=== PATIENT | female | born 1965 | race Caucasian/White ===

== ENCOUNTER 2021-11-01 22:53 | Emergency (ER) | payer OTHER ==
[2021-11-01 23:18] LABS: Hematocrit 48.1 % (35-47); Hemoglobin 15.2 gm/dl (12.0-16.0); Mean Cell Volume 93.8 fl (78-100); Mean Corpuscular Hemoglobin 29.6 pg (26-32); Mean Corpuscular Hgb Concent. 31.6 g/dl (32-36); Mean Platelet Volume 12.4 fl (7.5-11.0); Platelet Count 146 K/mm3 (150-450); Red Blood Count 5.13 M/mm3 (4.1-5.4); Red Cell Distribution Width 13.9 % (11.5-14.0)
[2021-11-01 23:45] LABS: Barbiturate,Urine NEGATIVE (NEGATIVE); Benzodiazepine,Urine NEGATIVE (NEGATIVE); Cocaine,Urine NEGATIVE (NEGATIVE); Methadone,Urine NEGATIVE (NEGATIVE); Opiate,Urine NEGATIVE (NEGATIVE); PCP,Urine NEGATIVE (NEGATIVE); THC,Urine POSITIVE (NEGATIVE)
[2021-11-01 23:48] LABS: Mucus MANY /HPF (NEGATIVE); RBC 0-2 /HPF (0-2)
[2021-11-02 00:03] LABS: Appearance CLEAR (CLEAR); Bilirubin NEGATIVE (NEGATIVE); Dipstick done @ ? MAIN LAB; Glucose 500 mg/dL (NEGATIVE); Ketones NEGATIVE (NEGATIVE); Nitrite NEGATIVE (NEGATIVE); Protein,Urine Dip 100 (Negative); RBC TRACE-INTACT Ery/ul (0-5); Specific Gravity >=1.030 (1.005-1.025); Urobilinogen 0.2 mg/dL (0-1)
[2021-11-02 00:08] LABS: Urine Cultured Indicated? YES
[2021-11-02] MEDS ORDERED: Zofran 4 MG/2 ML VIAL IV ONE (00:27)
[2021-11-02] MEDS ORDERED: Zofran 4 MG/2 ML VIAL ONE (00:28)
[2021-11-02 00:36] LABS: Amphetamine,Urine POSITIVE (NEGATIVE)
[2021-11-02 01:01] LABS: ACETAMINOPHEN < 10 ug/ml (10-30); ALBUMIN 4.2 g/dL (3.5-5.0); ALKALINE PHOSPHATASE 140 U/L (38-126); BLOOD UREA NITROGEN 19 mg/dL (7-17); CHLORIDE 105 mmol/L (98-107); Calcium 9.3 mg/dL (8.4-10.2); Carbon Dioxide 28 mmol/L (22-30); Creatinine 1 0.82 mg/dL (0.52-1.04); EST GLOMERULAR FILTRATION RATE > 60.0 ML/MIN; ETHYL ALCOHOL < 10 mg/dL (0-10); Glucose 152 mg/dL (74-106); Potassium 3.7 mmol/L (3.5-5.1); SALICYLATE < 1.0 mg/dL (2-20); SGOT/AST 53 U/L (14-36); SGPT/ALT 48 U/L (0-35); SODIUM 140 mmol/L (137-145); Total Protein 7.2 g/dL (6.3-8.2)
[2021-11-02 01:03] LABS: TROPONIN 0.057 ng/mL (0.000-0.034)
[2021-11-02 01:39] LABS: BAND 1 % (0.0-2.0); Basophil 1 % (0.0-1.0); Lymphocytes 27 % (24-44); Total Cells Counted 100
[2021-11-02 01:40] LABS: Platelet Estimate NORMAL (NORMAL)
[2021-11-02 01:43] LABS: Barbiturate,Urine NEGATIVE (NEGATIVE); Benzodiazepine,Urine NEGATIVE (NEGATIVE); Cocaine,Urine NEGATIVE (NEGATIVE); Methadone,Urine NEGATIVE (NEGATIVE); Opiate,Urine NEGATIVE (NEGATIVE); PCP,Urine NEGATIVE (NEGATIVE); THC,Urine POSITIVE (NEGATIVE)
[2021-11-02 02:02] LABS: Amphetamine,Urine POSITIVE (NEGATIVE)
--- NOTE | 2021-11-02 02:07 | ERPHSYRPT ---
- History of Present Illness Source: EMS Exam Limitations: clinical condition Patient Subjective Stated Complaint: Patient unaware of why she is at the ED. Patient keeps stating, "where am I at and why am I here?" Also repeatedly stating, "I need to poop." EMS states that they were called to patient's location for an accidental overdose. Man at the scene that was the 911 called identified as the or boyfriend by EMS stated that patient probably overdosed on heroin. Denies pain. Triage Nursing Assessment: Patient arrived to ED by ambulance. She was yelling out and awake upon arrival to ED. Alert to name but disoriented to place and situation. Pupils pinpoint. Patient incontinent of BM during assessment. BM formed. Patient keeps drawing up knees/legs and refusing to straigthen them out for staff during assessment. Skin cool to touch. Physician History: 55 yo wf snorted heroin at her residence this evening and became apneic. EMS arrived and administered Narcan 4mg intranasally x2 and 2mg IV Narcan which revived pt. Pt became combative after narcan but had a good airway w adequate respirations. She arrived to the ER confused but with a good airway. Pt became more awake and alert during stay. She denied trauma. Timing/Duration: other (Resolving prior to arrival) Modifying Factors: Improves With: other (Narcan) Associated Symptoms: nausea, No vomiting, No abdominal pain, No shortness of breath, No heartburn, No diaphoresis, No cough, No chills, No chest pain, No fever, No headaches, No loss of appetite, No malaise, No rash, No syncope, No seizure, No weakness Allergies/Adverse Reactions: gabapentin Allergy (Verified 11/02/21 06:30) Home Medications: Pregabalin [Lyrica] 75 mg PO BID 11/01/21 [History] Hx Tetanus, Diphtheria Vaccination/Date Given: (unsure) Hx Influenza Vaccination/Date Given: (unsure) Hx Pneumococcal Vaccination/Date Given: (unsure) Immunizations Up to Date: (unsure) Travel Risk - International Travel Have you traveled outside of the country in past 3 weeks: No - Coronavirus Screening Are you exhibiting any of the following symptoms?: No Close contact with a COVID-19 positive Pt in past 14-21 Days: No - Vaccine Status Have you recieved a Covid-19 vaccination: No - Review of Systems Constitutional: No Symptoms Eyes: No Symptoms Ears, Nose, & Throat: No Symptoms Respiratory: No Symptoms Cardiac: No Symptoms Abdominal/Gastrointestinal: No Symptoms, Nausea, Vomiting Genitourinary Symptoms: No Symptoms Musculoskeletal: No Symptoms Skin: No Symptoms Neurological: No Symptoms Psychological: No Symptoms Endocrine: No Symptoms Hematologic/Lymphatic: No Symptoms Immunological/Allergic: No Symptoms - Past Medical History Pertinent Past Medical History: No Other Medical History: Patient either unable or unwilling to give medical history at this time. She keeps stating, "I don't know" when asked about her medical history. - Past Surgical History Past Surgical History: Yes Gastrointestinal: Appendectomy Other Surgical History: Appendectomy taken from previous medical records/history. Patient either unable or unwilling to give any further surgical history at this time. She keeps stating, "I don't know" when asked about her surgical history. - Social History Smoking Status: Current every day smoker How long have you smoked: unsure Exposure to second hand smoke: No Drug Use: heroin Patient Lives Alone: No Significant Family History: no pertinent family hx - Nursing Vital Signs Nursing Vital Signs: Initial Vital Signs Pulse Rate 98 H 11/01/21 22:54 Respiratory Rate 19 11/01/21 22:54 O2 Sat by Pulse Oximetry 100 11/01/21 22:54 Pain Scale Pain Intensity 0 Mildly tachypneic - Physical Exam General Appearance: mild distress, lethargy (Lethargy resolving upon arrival) Eye Exam: PERRL/EOMI, eyes nml inspection Ears, Nose, Throat Exam: normal ENT inspection, TMs normal, pharynx normal Neck Exam: normal inspection, non-tender, supple, full range of motion, No meningismus, No mass, No Brudzinski, No Kernig's, No carotid bruit Respiratory Exam: normal breath sounds, lungs clear, airway intact, No respiratory distress Cardiovascular Exam: regular rate/rhythm, normal heart sounds, normal peripheral pulses, capillary refill <2 sec, No murmur Gastrointestinal/Abdomen Exam: soft, normal bowel sounds, No tenderness Back Exam: normal inspection, normal range of motion, No CVA tenderness, No vertebral tenderness Extremity Exam: normal inspection, normal range of motion, pelvis stable Neurologic Exam: other (Pt confused upon arrival but became more awake and alert w eventual orientation x3) Skin Exam: normal color Lymphatic Exam: No adenopathy SpO2 Interpretation: normal SpO2: 98 O2 Delivery: Room Air - Course Nursing assessment & vital signs reviewed: Yes EKG Interpreted by Me: RATE (NSR/Rate94/Mildly prolonged QTc/Poor Rwave progression V2-V3/No acute ST changes/EKG#2NSR/R87/Prolonged QTc/possible old inferior OR/Poor Rwave progression V2-V3) - CT Exams Head CT Interpretation: Tele-radiologist Report (NAD) Chest CT Interpretation: Tele-radiologist Report (CT chest/No PE/B lower lobe alveolar opacities) Ordered Tests: Active Orders 24 hr Category Date Time Status EKG-ER Only STAT Care 11/01/21 22:55 Active CHEST WITH CONTRAST [CT] Stat Exams 11/02/21 03:27 Taken HEAD WITHOUT CONTRAST [CT] Stat Exams 11/02/21 03:27 Taken ACETAMINOPHEN Routine Lab 11/01/21 23:00 Completed CBC W DIFF Stat Lab 11/01/21 22:55 Completed CMP Routine Lab 11/01/21 23:00 Completed CULTURE,URINE Stat Lab 11/01/21 23:05 Received CULTURE,URINE Stat Lab 11/01/21 23:05 Received D-DIMER QUANTITATIVE Stat Lab 11/02/21 03:00 Completed ETHYL ALCOHOL Routine Lab 11/01/21 23:00 Completed Manual Differential NC Stat Lab 11/01/21 22:55 Completed SALICYLATE Routine Lab 11/01/21 23:00 Completed TROPONIN Q3H Lab 11/01/21 23:00 Completed TROPONIN Q3H Lab 11/02/21 01:50 Completed TROPONIN Q3H Lab 11/02/21 04:48 Completed TROPONIN Q3H Lab 11/02/21 08:00 Ordered TROPONIN Q3H Lab 11/02/21 11:00 Ordered Urine Triage Profile Stat Lab 11/01/21 23:05 Completed Urine Triage Profile Stat Lab 11/02/21 00:47 Completed Medication Summary Generic Name Dose Route Start Last Admin Trade Name Freq PRN Reason Stop Dose Admin Ceftriaxone Sodium/Dextrose 1 g in 50 mls @ 100 mls/hr 11/02/21 06:28 11/02/21 06:32 Rocephin 1 Gm-D5w 50 Ml Bag IV 11/02/21 06:57 100 mls/hr STAT STA 100 mls/hr Administration Sodium Chloride 1,000 mls @ 999 mls/hr 11/02/21 06:43 11/02/21 06:46 Sodium Chloride 0.9% 1000 Ml IV 11/02/21 07:43 999 mls/hr .Q1H1M STA Administration Discontinued Medications Generic Name Dose Route Start Last Admin Trade Name Jarrellq PRN Reason Stop Dose Admin Aspirin 324 mg 11/02/21 03:20 11/02/21 03:23 Aspirin 81 Mg Tab.Chew PO 11/02/21 03:21 324 mg STAT ONE Administration Enoxaparin Sodium 90 mg 11/02/21 06:30 11/02/21 06:36 Enoxaparin Sodium 100 Mg/Ml Syringe 1 mg/kg (90 mg) 11/02/21 06:31 90 mg SQ Administration ONCE ONE Enoxaparin Sodium Confirm 11/02/21 06:35 Enoxaparin Sodium 120 Mg/0.8 Ml Syringe Administered 11/02/21 06:36 Dose 120 mg SQ .STK-MED ONE Ceftriaxone Sodium/Dextrose Confirm 11/02/21 06:31 Rocephin 1 Gm-D5w 50 Ml Bag Administered 11/02/21 06:32 Dose 1 g in 50 mls @ ud IV .STK-MED ONE Sodium Chloride Confirm 11/02/21 06:43 Sodium Chloride 0.9% 1000 Ml Administered 11/02/21 06:44 Dose 1,000 mls @ ud .ROUTE .STK-MED ONE Ondansetron HCl 4 mg 11/02/21 00:27 11/02/21 00:29 Ondansetron Hcl 4 Mg/2 Ml Vial IV 11/02/21 00:28 4 mg STAT ONE Administration Ondansetron HCl Confirm 11/02/21 00:28 Ondansetron Hcl 4 Mg/2 Ml Vial Administered 11/02/21 00:29 Dose 4 mg .ROUTE .STK-MED ONE Lab/Rad Data: Laboratory Result Diagrams 11/01/21 22:55 11/01/21 23:00 Laboratory Results 11/02/21 11/02/21 11/02/21 Range/Units 05:31 04:48 03:00 WBC (4.0-10.5) K/mm3 RBC (4.1-5.4) M/mm3 Hgb (12.0-16.0) gm/dl Hct (35-47) % MCV (78-100) fl MCH (26-32) pg MCHC (32-36) g/dl RDW (11.5-14.0) % Plt Count (150-450) K/mm3 MPV (7.5-11.0) fl Segmented Neutrophils (36.0-66.0) % Band Neutrophils (0.0-2.0) % Lymphocytes (Manual) (24-44) % Basophils (Manual) (0.0-1.0) % Platelet Estimate (NORMAL) RBC Morphology D-Dimer 766 H* (215-500) ng/mL Sodium (137-145) mmol/L Potassium (3.5-5.1) mmol/L Chloride (98-107) mmol/L Carbon Dioxide (22-30) mmol/L Anion Gap (5-15) MEQ/L BUN (7-17) mg/dL Creatinine (0.52-1.04) mg/dL Estimated GFR ML/MIN Glucose (74-106) mg/dL Calcium (8.4-10.2) mg/dL Total Bilirubin (0.2-1.3) mg/dL AST (14-36) U/L ALT (0-35) U/L Alkaline Phosphatase (38-126) U/L Troponin I 0.086 H* (0.000-0.034) ng/mL Serum Total Protein (6.3-8.2) g/dL Albumin (3.5-5.0) g/dL Urinalys Dipstick Clnc Urine Color (YELLOW) Urine Appearance (CLEAR) Urine pH (5-6) Ur Specific [place] (1.005-1.025) POC Urine Protein Conf (Negative) Urine Ketones (NEGATIVE) Urine Nitrite (NEGATIVE) Urine Bilirubin (NEGATIVE) Urine Urobilinogen (0-1) mg/dL Urine Leukocytes (NEGATIVE) Urine WBC (Auto) (0-5) /HPF Urine RBC (Auto) (0-2) /HPF U Hyaline Cast (Auto) (0-2) /LPF U Epithel Cells (Auto) (FEW) /HPF Urine Bacteria (Auto) (NEGATIVE) /HPF Urine RBC (0-5) Smith/ul Urine Mucus (Auto) (NEGATIVE) /HPF Ur Culture Indicated? Urine Glucose (NEGATIVE) mg/dL Salicylates (2-20) mg/dL Urine Opiates Level (NEGATIVE) Ur Methadone (NEGATIVE) Acetaminophen (10-30) ug/ml Urine Barbiturates (NEGATIVE) Ur Phencyclidine (PCP) (NEGATIVE) Urine Amphetamine (NEGATIVE) U Benzodiazepine Level (NEGATIVE) Urine Cocaine (NEGATIVE) Urine Marijuana (THC) (NEGATIVE) Ethyl Alcohol (0-10) mg/dL Influenza Type A Ag NEGATIVE (NEGATIVE) Influenza Type B Ag NEGATIVE (NEGATIVE) RSV (PCR) NEGATIVE (Negative) SARS-CoV-2 (PCR) NEGATIVE (NEGATIVE) 11/02/21 11/02/21 11/01/21 Range/Units 01:50 00:47 23:05 WBC (4.0-10.5) K/mm3 RBC (4.1-5.4) M/mm3 Hgb (12.0-16.0) gm/dl Hct (35-47) % MCV (78-100) fl MCH (26-32) pg MCHC (32-36) g/dl RDW (11.5-14.0) % Plt Count (150-450) K/mm3 MPV (7.5-11.0) fl Segmented Neutrophils (36.0-66.0) % Band Neutrophils (0.0-2.0) % Lymphocytes (Manual) (24-44) % Basophils (Manual) (0.0-1.0) % Platelet Estimate (NORMAL) RBC Morphology D-Dimer (215-500) ng/mL Sodium (137-145) mmol/L Potassium (3.5-5.1) mmol/L Chloride (98-107) mmol/L Carbon Dioxide (22-30) mmol/L Anion Gap (5-15) MEQ/L BUN (7-17) mg/dL Creatinine (0.52-1.04) mg/dL Estimated GFR ML/MIN Glucose (74-106) mg/dL Calcium (8.4-10.2) mg/dL Total Bilirubin (0.2-1.3) mg/dL AST (14-36) U/L ALT (0-35) U/L Alkaline Phosphatase (38-126) U/L Troponin I 0.072 H* (0.000-0.034) ng/mL Serum Total Protein (6.3-8.2) g/dL Albumin (3.5-5.0) g/dL Urinalys Dipstick Clnc Urine Color (YELLOW) Urine Appearance (CLEAR) Urine pH (5-6) Ur Specific [place] (1.005-1.025) POC Urine Protein Conf (Negative) Urine Ketones (NEGATIVE) Urine Nitrite (NEGATIVE) Urine Bilirubin (NEGATIVE) Urine Urobilinogen (0-1) mg/dL Urine Leukocytes (NEGATIVE) Urine WBC (Auto) (0-5) /HPF Urine RBC (Auto) (0-2) /HPF U Hyaline Cast (Auto) (0-2) /LPF U Epithel Cells (Auto) (FEW) /HPF Urine Bacteria (Auto) (NEGATIVE) /HPF Urine RBC (0-5) Smith/ul Urine Mucus (Auto) (NEGATIVE) /HPF Ur Culture Indicated? Urine Glucose (NEGATIVE) mg/dL Salicylates (2-20) mg/dL Urine Opiates Level NEGATIVE NEGATIVE (NEGATIVE) Ur Methadone NEGATIVE NEGATIVE (NEGATIVE) Acetaminophen (10-30) ug/ml Urine Barbiturates NEGATIVE NEGATIVE (NEGATIVE) Ur Phencyclidine (PCP) NEGATIVE NEGATIVE (NEGATIVE) Urine Amphetamine POSITIVE POSITIVE (NEGATIVE) U Benzodiazepine Level NEGATIVE NEGATIVE (NEGATIVE) Urine Cocaine NEGATIVE NEGATIVE (NEGATIVE) Urine Marijuana (THC) POSITIVE POSITIVE (NEGATIVE) Ethyl Alcohol (0-10) mg/dL Influenza Type A Ag (NEGATIVE) Influenza Type B Ag (NEGATIVE) RSV (PCR) (Negative) SARS-CoV-2 (PCR) (NEGATIVE) 11/01/21 11/01/21 11/01/21 Range/Units 23:05 23:00 22:55 WBC 8.0 (4.0-10.5) K/mm3 RBC 5.13 (4.1-5.4) M/mm3 Hgb 15.2 (12.0-16.0) gm/dl Hct 48.1 H (35-47) % MCV 93.8 (78-100) fl MCH 29.6 (26-32) pg MCHC 31.6 L (32-36) g/dl RDW 13.9 (11.5-14.0) % Plt Count 146 L (150-450) K/mm3 MPV 12.4 H (7.5-11.0) fl Segmented Neutrophils 71 H (36.0-66.0) % Band Neutrophils 1 (0.0-2.0) % Lymphocytes (Manual) 27 (24-44) % Basophils (Manual) 1 (0.0-1.0) % Platelet Estimate NORMAL (NORMAL) RBC Morphology NORMAL D-Dimer (215-500) ng/mL Sodium 140 (137-145) mmol/L Potassium 3.7 (3.5-5.1) mmol/L Chloride 105 (98-107) mmol/L Carbon Dioxide 28 (22-30) mmol/L Anion Gap 11.0 (5-15) MEQ/L BUN 19 H (7-17) mg/dL Creatinine 0.82 (0.52-1.04) mg/dL Estimated GFR > 60.0 ML/MIN Glucose 152 H (74-106) mg/dL Calcium 9.3 (8.4-10.2) mg/dL Total Bilirubin 0.40 (0.2-1.3) mg/dL AST 53 H (14-36) U/L ALT 48 H (0-35) U/L Alkaline Phosphatase 140 H (38-126) U/L Troponin I 0.057 H* (0.000-0.034) ng/mL Serum Total Protein 7.2 (6.3-8.2) g/dL Albumin 4.2 (3.5-5.0) g/dL Urinalys Dipstick Clnc MAIN LAB Urine Color YELLOW (YELLOW) Urine Appearance CLEAR (CLEAR) Urine pH 6.0 (5-6) Ur Specific [place] >=1.030 (1.005-1.025) POC Urine Protein Conf 100 (Negative) Urine Ketones NEGATIVE (NEGATIVE) Urine Nitrite NEGATIVE (NEGATIVE) Urine Bilirubin NEGATIVE (NEGATIVE) Urine Urobilinogen 0.2 (0-1) mg/dL Urine Leukocytes NEGATIVE (NEGATIVE) Urine WBC (Auto) 3-5 (0-5) /HPF Urine RBC (Auto) 0-2 (0-2) /HPF U Hyaline Cast (Auto) 6-10 (0-2) /LPF U Epithel Cells (Auto) NONE (FEW) /HPF Urine Bacteria (Auto) NONE (NEGATIVE) /HPF Urine RBC TRACE-INTACT (0-5) Smith/ul Urine Mucus (Auto) MANY (NEGATIVE) /HPF Ur Culture Indicated? YES Urine Glucose 500 (NEGATIVE) mg/dL Salicylates < 1.0 L (2-20) mg/dL Urine Opiates Level (NEGATIVE) Ur Methadone (NEGATIVE) Acetaminophen < 10 L (10-30) ug/ml Urine Barbiturates (NEGATIVE) Ur Phencyclidine (PCP) (NEGATIVE) Urine Amphetamine (NEGATIVE) U Benzodiazepine Level (NEGATIVE) Urine Cocaine (NEGATIVE) Urine Marijuana (THC) (NEGATIVE) Ethyl Alcohol < 10 (0-10) mg/dL Influenza Type A Ag (NEGATIVE) Influenza Type B Ag (NEGATIVE) RSV (PCR) (Negative) SARS-CoV-2 (PCR) (NEGATIVE) - Progress Progress: improved Progress Note: 11/02/21 06:26 Zofran 4mg IV x1 ASA 324mg po chewable 11/02/21 06:[address] Cervantes 1gm IV Rocephin 90mg sq Lovenox 11/02/21 06:42 Pt mildly hypothermic upon arrival and became normothermic w Doron Mederos 11/02/21 06:43 Counseled pt/family regarding: lab results, diagnosis, need for follow-up, zion terrazas - Departure Departure Disposition: Transfer Clinical Impression: Narcotic overdose, Elevated troponin, Pneumonia, Substance abuse, Hypothermia Condition: Stable Critical Care Time: Yes Critical Care Time(excluding separately billable procedures): Critical 30-74 mins Referrals: GREGORY BENAVIDEZ FNP [Primary Care Provider] - Follow up/PCP as directed Instructions: Accidental Overdose (DC)
[2021-11-02] MEDS ORDERED: BABY ASPIRIN 81 MG CHEW PO ONE (03:20)
[2021-11-02 05:48] VITALS: O2SAT 98
[2021-11-02 06:09] LABS: INFLUENZA A NEGATIVE (NEGATIVE); INFLUENZA B NEGATIVE (NEGATIVE); RESPIRATORY SYNCTIAL VIRUS NEGATIVE (Negative); SARS-CoV-2 Xpert Express NEGATIVE (NEGATIVE)
[2021-11-02] MEDS ORDERED: ROCEPHIN 1 Gm-D5w 50 ml Bag** 1 G/50 ML IVPB IV STA (06:28)
[2021-11-02] MEDS ORDERED: ENOXAPARIN SODIUM SQ ONE ×2 (06:30→06:35)
[2021-11-02] MEDS ORDERED: ROCEPHIN 1 Gm-D5w 50 ml Bag** 1 G/50 ML IVPB IV ONE (06:31)
[2021-11-02] MEDS ORDERED: Sodium Chloride 0.9% 1000 ML 1,000 ML ONE (06:43)
[2021-11-02] MEDS ORDERED: Sodium Chloride 0.9% 1000 ML 1,000 ML IV STA (06:43)
[2021-11-02 07:07] VITALS: BP 123/68; PULSE 85
--- NOTE | 2021-11-02 09:01 | XRAY ---
Indication: Elevated d-dimer. Multiple contiguous axial images obtained through the chest using 80 cc Isovue 370 contrast and PE protocol. Comparison: None. There is good opacification of the pulmonary arteries including lobar and segmental branches. No pulmonary embolus. Heart not enlarged. Aorta is normal in course and caliber with very minimal arteriosclerotic calcifications. No pathologic mediastinal/hilar lymphadenopathy. Lungs demonstrates mild pulmonary emphysema, minimal peripheral fibrosis/scarring, and mild/moderate bilateral dependent atelectasis greatest in both lung bases. Both lower lobes and lesser degree right upper and right middle lobe patchy interstitial alveolar opacities. No consolidation or effusion. Bony thorax intact with mild degenerative changes throughout the spine. Limited upper abdomen demonstrates fatty liver. Impression: 1. Negative pulmonary embolus. 2. Bilateral patchy interstitial opacities greatest in both lower lobes. 3. Incidental pulmonary emphysema, pulmonary fibrosis/scarring, and fatty liver. Comment: Preliminary interpretation made by [facility]. No critical discrepancy.
--- NOTE | 2021-11-02 09:01 | XRAY ---
Indication: Decreased loss of consciousness. Multiple contiguous axial images obtained through the head without contrast. Comparison: None Normal appearing brain parenchyma, ventricles, and bony calvarium. Visualized paranasal sinuses and mastoid air cells are clear. Impression: Normal CT head without contrast exam. Comment: Preliminary interpretation made by [facility]. No critical discrepancy.
== END 2021-11-02 07:31 | disposition short-term general hospital (02) ==
LOC: ED 22:53
DX: T40.1X1A Poisoning by heroin, accidental (unintentional), initial encounter (principal); R40.0 Somnolence; F11.121 Opioid abuse with intoxication delirium; R11.0 Nausea; R77.8 Other specified abnormalities of plasma proteins; J18.9 Pneumonia, unspecified organism; T68.XXXA Hypothermia, initial encounter; Z72.0 Tobacco use
CPT/HCPCS: 0241U; 36000; 36415; 70450; 71260; 80053; 80307; 81015; 84484; 85025; 85379; 87086; 93005; 96365; 96372; 96374; 99285; 99291; G0480; J0696; J1650; J2405; A9270-GY

== ENCOUNTER 2023-07-13 14:51 | Emergency (ER) | payer OTHER ==
[2023-07-13 15:17] VITALS: BP 126/63; TEMP 97.9
[2023-07-13] MEDS ORDERED: Sodium Chloride 0.9% 1000 ML 1,000 ML IV STA (15:22)
[2023-07-13 15:43] VITALS: PULSE 78; RESP 17; O2SAT 97
[2023-07-13 15:51] LABS: Absolute Neutrophil Ct (ANC) 5.64 x10^3/uL (1.4-6.9); BASOPHIL % 0.6 % (0.0-0.4); Basophil (Absolute #) 0.05 x10^3/uL (0-0.4); Eosinophil % 1.4 % (0.00-5.0); Eosinophil (Absolute #) 0.12 x10^3/uL (0-0.5); Hematocrit 41.8 % (35-47); Hemoglobin 13.4 g/dL (12.0-16.0); IMMATURE GRAN # 0.03 x10^3u/L (0.00-0.03); IMMATURE GRAN % 0.3 % (0.00-0.4); Lymphocyte (Absolute #) 2.22 x10^3/uL (1.0-4.6); Lymphocytes % 25.8 % (24.0-44.0); Mean Cell Volume 92.7 fL (78-100); Mean Corpuscular Hemoglobin 29.7 pg (26-32); Mean Corpuscular Hgb Concent. 32.1 g/dL (32-36); Mean Platelet Volume 11.2 fL (7.5-11.0); Monocyte (Absolute #) 0.55 x10^3/uL (0.0-1.3); Monocytes % 6.4 % (0.0-12.0); Neutrophil % 65.5 % (36.0-66.0); Platelet Count 178 x10^3/uL (150-450); Red Blood Count 4.51 x10^6/uL (4.1-5.4); Red Cell Distribution Width 13.5 % (11.5-14.0); White Blood Count 8.6 x10^3/uL (4.0-10.5)
[2023-07-13 16:04] LABS: ALBUMIN 3.9 g/dL (3.5-5.0); ANION GAP 7.4 MEQ/L (5-15); BILIRUBIN,TOTAL 0.5 mg/dL (0.2-1.3); Calcium 8.9 mg/dL (8.4-10.2); Creatinine 1 0.57 mg/dL (0.52-1.04); EST GLOMERULAR FILTRATION RATE 105.9 ML/MIN; Potassium 3.9 mmol/L (3.5-5.1); Total Protein 6.7 g/dL (6.3-8.2)
[2023-07-13] MEDS ORDERED: Sodium Chloride 0.9% 1000 ML 1,000 ML ONE (16:08)
--- NOTE | 2023-07-13 16:27 | XRAY ---
Indication: Diarrhea. Colitis. Multiple contiguous axial images obtained through the abdomen and pelvis without contrast. Comparison: April 17, 2013 Lung bases demonstrates dependent atelectasis. No infiltrate or effusion. Heart not enlarged. Noncontrasted stomach and bowel loops appear nonobstructed. Descending duodenum demonstrates new small diverticulum. Appendix not visualized. Colon demonstrates mild diffuse fluid leveling throughout favoring diarrhea. Colon also demonstrates scattered punctate intraluminal radiopacities presumed ingested medication/bismuth. No abnormal bowel wall thickening. Previous hysterectomy. No free fluid/air. Remaining liver, gallbladder, pancreas, spleen, adrenal glands, kidneys, ureters, and bladder are unremarkable for noncontrast exam. Mild scattered aortoiliac calcifications without AAA. Osseous structures intact with minimal degenerative changes throughout the visualized spine. No ventral or inguinal hernias. Impression: 1. Diffuse colonic diarrhea. No abnormal bowel wall thickening or inflammatory changes on this noncontrast exam. 2. Chronic findings including duodenal diverticulum, arteriosclerotic disease and degenerative spondylosis. 3. Remaining CT abdomen/pelvis without contrast exam is negative.
--- NOTE | 2023-07-13 16:58 | ERPHSYRPT ---
- History of Present Illness Time Seen by Provider: 07/13/23 14:53 Historian: patient Exam Limitations: no limitations Patient Subjective Stated Complaint: pt made chili on Monday and she has had severe diarrhea since Triage Nursing Assessment: Pt brought self to the ER, vitals wnl, denies pain at this time, pt states that she is on her second month of hepatitis medicine so she doesn't think that could be doing it, pt made chili on Monday and has been having diarrhea since, pt has been clean from drugs one year this weekend, pulses normal, skin n/w/d, doesn't appear to be in any distress Physician History: 57-year-old female presented in the ER with chief complaint of generalized abdominal discomfort and diarrhea multiple episodes loose watery for the last 2 days without hematochezia. Patient denies any fever or chills. Has some nausea but no vomiting. Patient reports some cramping in the lower abdomen. Denies any known sick contact. No recent antibiotics use. Because of repeated episodes of diarrhea she feels weak fatigued tired and dehydrated. Allergies/Adverse Reactions: gabapentin Allergy (Verified 07/13/23 15:17) Home Medications: Pregabalin [Lyrica] 75 mg PO BID 11/01/21 [History] Losartan Potassium 50 mg [Cozaar 50 MG] 50 mg PO DAILY 07/13/23 [History] Sofosbuvir/Velpatasvir [Sofosbuvir-Velpatasvir 400-100] 1 tab PO HS 07/13/23 [History] Hx Tetanus, Diphtheria Vaccination/Date Given: (unsure) Hx Influenza Vaccination/Date Given: Yes Hx Pneumococcal Vaccination/Date Given: Yes Travel Risk - International Travel Have you traveled outside of the country in past 3 weeks: No - Coronavirus Screening Are you exhibiting any of the following symptoms?: No Close contact with a COVID-19 positive Pt in past 14-21 Days: No - Vaccine Status Have you recieved a Covid-19 vaccination: Yes Enrichment Director: Moderna - Vaccination Dates Date of 2cond Vaccination (if applicable): 2021 - Review of Systems Constitutional: Fatigue, Weakness Eyes: No Symptoms Ears, Nose, & Throat: No Symptoms Respiratory: No Symptoms Cardiac: No Symptoms Abdominal/Gastrointestinal: Abdominal Pain, Nausea, Diarrhea Genitourinary Symptoms: No Symptoms Musculoskeletal: No Symptoms Skin: No Symptoms Neurological: No Symptoms Psychological: No Symptoms Endocrine: No Symptoms Hematologic/Lymphatic: No Symptoms - Past Medical History Pertinent Past Medical History: No Neurological History: No Pertinent History ENT History: No Pertinent History Cardiac History: Arrhythmia, High Cholesterol, Hypertension Respiratory History: COPD Endocrine Medical History: Liver Disease Musculoskeletal History: Osteoarthritis GI Medical History: Hernia History: No Pertinent History Psycho-Social History: No Pertinent History Female Reproductive Disorders: Breast Cancer Other Medical History: PMH: BREAST CANCER, SMOKING HISTORY, HEPATTIS C, HEART MURMUR, HX OF DRUG ABUSE. PSH: GUM REMOVAL SURGERY, APPENDECTOMY, BREAST BIOPSY, PARTIAL MASTECTOMY, HYSTERECTOMY, BROKEN ELBOW - Past Surgical History Past Surgical History: Yes Neuro Surgical History: No Pertinent History Cardiac: No Pertinent History Respiratory: No Pertinent History Gastrointestinal: Appendectomy Genitourinary: No Pertinent History Musculoskeletal: No Pertinent History Female Surgical History: Hysterectomy, Lumpectomy Other Surgical History: . - Social History Smoking Status: Current every day smoker How long have you smoked: unsure Exposure to second hand smoke: Yes Drug Use: heroin Patient Lives Alone: No Significant Family History: no pertinent family hx - Nursing Vital Signs Nursing Vital Signs: Initial Vital Signs Temperature 97.9 F 07/13/23 15:04 Pulse Rate 83 07/13/23 15:04 Respiratory Rate 15 07/13/23 15:04 Blood Pressure 126/63 07/13/23 15:04 O2 Sat by Pulse Oximetry 96 07/13/23 15:04 Pain Scale Pain Intensity 0 - Physical Exam General Appearance: no apparent distress Eye Exam: PERRL/EOMI Ears, Nose, Throat Exam: normal ENT inspection Neck Exam: normal inspection Respiratory Exam: normal breath sounds Cardiovascular Exam: regular rate/rhythm, normal heart sounds Gastrointestinal/Abdomen Exam: soft, normal bowel sounds, tenderness (Minimal abdominal discomfort/tenderness with deep palpation without guarding or rebound tenderness. 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 nml as tested Skin Exam: normal color SpO2 Interpretation: normal SpO2: 97 O2 Delivery: Room Air Ordered Tests: Medication Summary Discontinued Medications Generic Name Dose Route Start Last Admin Trade Name Freq PRN Reason Stop Dose Admin Sodium Chloride 1,000 mls @ 999 mls/hr 07/13/23 15:22 07/13/23 17:35 Sodium Chloride 0.9% 1000 Ml IV 07/13/23 16:22 Infused .Q1H1M STA Infusion Sodium Chloride Confirm 07/13/23 16:08 Sodium Chloride 0.9% 1000 Ml Administered 07/13/23 16:09 Dose 1,000 mls @ ud .ROUTE .STK-MED ONE Lab/Rad Data: Laboratory Result Diagrams 07/13/23 15:45 07/13/23 15:45 Laboratory Results 07/13/23 07/13/23 07/13/23 Range/Units 16:28 15:45 15:45 WBC 8.6 (4.0-10.5) x10^3/uL RBC 4.51 (4.1-5.4) x10^6/uL Hgb 13.4 (12.0-16.0) g/dL Hct 41.8 (35-47) % MCV 92.7 (78-100) fL MCH 29.7 (26-32) pg MCHC 32.1 (32-36) g/dL RDW 13.5 (11.5-14.0) % Plt Count 178 (150-450) x10^3/uL MPV 11.2 H (7.5-11.0) fL Gran % 65.5 (36.0-66.0) % Immature Gran % (Auto) 0.3 (0.00-0.4) % Nucleat RBC Rel Count 0.0 (0.00-0.1) % Eos # (Auto) 0.12 (0-0.5) x10^3/uL Immature Gran # (Auto) 0.03 (0.00-0.03) x10^3u/L Absolute Lymphs (auto) 2.22 (1.0-4.6) x10^3/uL Absolute Monos (auto) 0.55 (0.0-1.3) x10^3/uL Absolute Nucleated RBC 0.00 (0.00-0.01) x10^3u/L Lymphocytes % 25.8 (24.0-44.0) % Monocytes % 6.4 (0.0-12.0) % Eosinophils % 1.4 (0.00-5.0) % Basophils % 0.6 (0.0-0.4) % Absolute Granulocytes 5.64 (1.4-6.9) x10^3/uL Basophils # 0.05 (0-0.4) x10^3/uL Sodium 137 (137-145) mmol/L Potassium 3.9 (3.5-5.1) mmol/L Chloride 105 (98-107) mmol/L Carbon Dioxide 28 (22-30) mmol/L Anion Gap 7.4 (5-15) MEQ/L BUN 25 H (7-17) mg/dL Creatinine 0.57 (0.52-1.04) mg/dL Estimated GFR 105.9 ML/MIN Glucose 98 (74-106) mg/dL Lactic Acid (0.4-2.0) Calcium 8.9 (8.4-10.2) mg/dL Total Bilirubin 0.50 (0.2-1.3) mg/dL AST 25 (14-36) U/L ALT 16 (0-35) U/L Alkaline Phosphatase 104 (38-126) U/L Serum Total Protein 6.7 (6.3-8.2) g/dL Albumin 3.9 (3.5-5.0) g/dL Lipase 45 (23-300) U/L Urine Color Yellow (Yellow) Urine Appearance Clear (Clear) Urine pH 5.5 (4.6-8.0) Ur Specific [place] 1.020 (1.005-1.030) Urine Protein Negative (Negative) Urine Glucose (UA) Negative (Negative) mg/dL Urine Ketones Negative (Negative) Urine Blood Negative (Negative) Urine Nitrite Negative (Negative) Urine Bilirubin Negative (Negative) Urine Urobilinogen 0.2 (0.2) mg/dL Ur Leukocyte Esterase Negative (Negative) Urine Microscopic RBC NONE SEEN (0-5) /HPF Urine Microscopic WBC 0-2 (0-5) /HPF Ur Epithelial Cells Rare (None Seen) /HPF Urine Bacteria None Seen (None Seen) /HPF Urine Culture Reflexed NO (NO) 07/13/23 Range/Units 15:22 WBC (4.0-10.5) x10^3/uL RBC (4.1-5.4) x10^6/uL Hgb (12.0-16.0) g/dL Hct (35-47) % MCV (78-100) fL MCH (26-32) pg MCHC (32-36) g/dL RDW (11.5-14.0) % Plt Count (150-450) x10^3/uL MPV (7.5-11.0) fL Gran % (36.0-66.0) % Immature Gran % (Auto) (0.00-0.4) % Nucleat RBC Rel Count (0.00-0.1) % Eos # (Auto) (0-0.5) x10^3/uL Immature Gran # (Auto) (0.00-0.03) x10^3u/L Absolute Lymphs (auto) (1.0-4.6) x10^3/uL Absolute Monos (auto) (0.0-1.3) x10^3/uL Absolute Nucleated RBC (0.00-0.01) x10^3u/L Lymphocytes % (24.0-44.0) % Monocytes % (0.0-12.0) % Eosinophils % (0.00-5.0) % Basophils % (0.0-0.4) % Absolute Granulocytes (1.4-6.9) x10^3/uL Basophils # (0-0.4) x10^3/uL Sodium (137-145) mmol/L Potassium (3.5-5.1) mmol/L Chloride (98-107) mmol/L Carbon Dioxide (22-30) mmol/L Anion Gap (5-15) MEQ/L BUN (7-17) mg/dL Creatinine (0.52-1.04) mg/dL Estimated GFR ML/MIN Glucose (74-106) mg/dL Lactic Acid 1.1 (0.4-2.0) Calcium (8.4-10.2) mg/dL Total Bilirubin (0.2-1.3) mg/dL AST (14-36) U/L ALT (0-35) U/L Alkaline Phosphatase (38-126) U/L Serum Total Protein (6.3-8.2) g/dL Albumin (3.5-5.0) g/dL Lipase (23-300) U/L Urine Color (Yellow) Urine Appearance (Clear) Urine pH (4.6-8.0) Ur Specific [place] (1.005-1.030) Urine Protein (Negative) Urine Glucose (UA) (Negative) mg/dL Urine Ketones (Negative) Urine Blood (Negative) Urine Nitrite (Negative) Urine Bilirubin (Negative) Urine Urobilinogen (0.2) mg/dL Ur Leukocyte Esterase (Negative) Urine Microscopic RBC (0-5) /HPF Urine Microscopic WBC (0-5) /HPF Ur Epithelial Cells (None Seen) /HPF Urine Bacteria (None Seen) /HPF Urine Culture Reflexed (NO) - Progress Progress: improved Progress Note: 07/13/23 17:11 Differential diagnosis. Gastroenteritis viral versus bacterial/functional, colitis, diverticulitis, C. difficile colitis, abscess/perforation, 57-year-old is evaluated for some abdominal discomfort with multiple episodes of loose stool for the last couple of days with dehydration and fatigue. She is given fluid bolus, offered pain medication and nausea medication which she declined. Workup showed normal white count, unremarkable chemistries. I have obtained CT abdomen pelvis without contrast which is negative as well. I have recommended stool studies but patient could not provide any sample. No history of recent antibiotic use or C. difficile in the past. I think probably patient has viral etiology symptoms, recommended supportive care and outpatient follow- up. Discussed signs symptoms of worsening needing return to ER which she seems understanding. Stable for discharge. Counseled pt/family regarding: lab results, diagnosis, need for follow-up, rad results Medical Desision Making - Diagnostic Testing Diagnostic test were ordered, analyzed, and reviewed by me: Yes Radiological Interpretation: Reviewed by me - Departure Departure Disposition: Home Clinical Impression: Diarrhea Condition: Stable Critical Care Time: No Referrals: GREGORY BENAVIDEZ FNP [Primary Care Provider] - Follow up with PCP 1 day Instructions: Diarrhea and Traveler's Diarrhea, Adult (DC) Additional Instructions: Drink plenty of fluids. Take Tylenol as needed for aches and pains. Follow-up with primary care for reevaluation. Return to ER for any worsening.
[2023-07-13 17:30] LABS: ADD URINE CULTURE? NO (NO); Appearance Clear (Clear); Bacteria None Seen /HPF (None Seen); Bilirubin Negative (Negative); Blood Negative (Negative); Epithelial Cells Rare /HPF (None Seen); Glucose, Urine Negative (Negative); Ketones Negative (Negative); Leukocyte Esterase Negative (Negative); Nitrite Negative (Negative); Ph 5.5 (4.6-8.0); Protein,Urine Dip Negative (Negative); RBC NONE SEEN /HPF (0-5); Urobilinogen 0.2 mg/dL (0.2); WBC 0-2 /HPF (0-5)
== END 2023-07-13 17:38 | disposition home or self-care (01) ==
LOC: ED 14:51
DX: R19.7 Diarrhea, unspecified (principal); R10.84 Generalized abdominal pain; R11.0 Nausea; E78.5 Hyperlipidemia, unspecified; I10 Essential (primary) hypertension; Z79.899 Other long term (current) drug therapy; Z72.0 Tobacco use
CPT/HCPCS: 36415; 74176; 80053; 81001; 83605; 83690; 85025; 96360; 99284

== ENCOUNTER 2025-03-18 16:43 | Observation (INO) | payer MEDICAID ==
--- NOTE | 2025-03-18 18:24 | ERPHSYRPT ---
- History of Present Illness Source: patient Patient Subjective Stated Complaint: patient started feeling nauseous/lightheaded/dizzy/chest discomfort at work this morning Triage Nursing Assessment: patient presents to ed via ambulation without complication, patient alert and oriented x 4, patient complains of lightheadedness/nausea/chest discomfort, patient denies shortness of breath, patient denies episodes of vomiting, patient's vitals wnl, Hx Tetanus, Diphtheria Vaccination/Date Given: No (unsure) Hx Influenza Vaccination/Date Given: Yes Hx Pneumococcal Vaccination/Date Given: Yes <MILY HILLIARD - Last Filed: 03/18/25 19:13> <NATHAN ALEXANDRE - Last Filed: 03/18/25 21:15> - History of Present Illness Time Seen by Provider: 03/18/25 17:36 Physician History: 59-year-old female states she felt dizzy and tight in her left chest approximately 3:30 PM today. Patient denies any history of cardiac disease. Patient does smoke with no history of respiratory illness. No headache headache or focal neurologic changes. feels nauseous without vomiting. No diarrhea. No abdominal pain. (MILY HILLIARD) Allergies/Adverse Reactions: dicyclomine [From Bentyl] Allergy (Verified 03/18/25 17:04) gabapentin Allergy (Verified 03/18/25 17:04) Home Medications: Pregabalin [Lyrica] 75 mg PO BID 11/01/21 [History] Losartan Potassium 50 mg [Cozaar 50 MG] 50 mg PO DAILY 07/13/23 [History] Sofosbuvir/Velpatasvir [Sofosbuvir-Velpatasvir 400-100] 1 tab PO HS 07/13/23 [History] Travel Risk - International Travel Have you traveled outside of the country in past 3 weeks: No - Emerging Infectious Disease Are you exhibiting symptoms associated with any current EIDs: No <MILY HILLIARD - Last Filed: 03/18/25 19:13> - Review of Systems All Other Systems: Reviewed and Negative (As per HPI otherwise negative) <MILY HILLIARD - Last Filed: 03/18/25 19:13> - Past Medical History Pertinent Past Medical History: No Neurological History: No Pertinent History ENT History: No Pertinent History Cardiac History: High Cholesterol, Hypertension Respiratory History: COPD, Other Endocrine Medical History: Other Musculoskeletal History: Fractures GI Medical History: Hernia History: No Pertinent History Psycho-Social History: No Pertinent History Female Reproductive Disorders: Breast Cancer Other Medical History: Hepatitis C, patient reports bacterial infection to stomach and liver (February 2024), hx of L breast cancer (s/p partial mastectomy in 2016), hysterectomy (2018), 2 places of concern to R lung (being monitored by Dr. Pérez), R elbow fracture (childhood), appendectomy (1983), GERD, bladder incontinence - Past Surgical History Past Surgical History: Yes Neuro Surgical History: No Pertinent History Cardiac: No Pertinent History Respiratory: No Pertinent History Gastrointestinal: Appendectomy, Cholecystectomy Genitourinary: No Pertinent History Musculoskeletal: No Pertinent History Female Surgical History: Hysterectomy, Lumpectomy Other Surgical History: . Significant Family History: no pertinent family hx - Social History Smoking Status: Current every day smoker Exposure to second hand smoke: Yes Drug Use: none - Social Determinants of Health Will the patient participate in the screening: Yes Do you worry about a steady place to live?: No Do you have any problems with any of the following?: No known problems In the past 12 months,have you had to go without utilities?: No Transportation Issues: No Has anyone in your support network made you feel unsafe?: No Have you or anyone in your house had to go w/o enough food: No <MILY HILLIARD - Last Filed: 03/18/25 19:13> - Physical Exam SpO2: 95 <MILY HILLIARD - Last Filed: 03/18/25 19:13> - Nursing Vital Signs Nursing Vital Signs: Initial Vital Signs Temperature 97 F 03/18/25 16:43 Pulse Rate 60 03/18/25 16:43 Respiratory Rate 18 03/18/25 16:43 Blood Pressure 121/59 03/18/25 16:43 O2 Sat by Pulse Oximetry 97 03/18/25 16:43 Pain Scale Pain Intensity 0 - Physical Exam Comments: 03/18/25 18:24 General: Well-nourished well-developed. No apparent distress. HEENT: Normocephalic atraumatic no obvious facial or neck deformity or injury. Neck: Supple. No deformity or mass noted. CV: RRR NL Perfusion. No edema.. Tender to palpation left chest wall at area of old lumpectomy site from breast cancer. Resp: No Respiratory distress or adventitious breath sounds Abd: ND SNT MSK: No deformity or TTP Neuro: Alert and [place] x4. No gross focal neurologic changes Psych: No SI, HI or grave disability (MILY HILLIARD) - Course Nursing assessment & vital signs reviewed: Yes EKG Interpreted by Me: RATE (87), Sinus Rhythm, NORMAL AXIS, NORMAL INTERVALS, NORMAL QRS - Radiology Exams Chest X-ray Interpretation: Interpreted by me (New right middle lobe opacity otherwise no acute findings. Preliminary read) <NATHAN ALEXANDRE - Last Filed: 03/18/25 21:15> Ordered Tests: Active Orders 24 hr Category Date Time Status Coat Padder STAT Care 03/18/25 18:25 Active IV Insertion STAT Care 03/18/25 18:24 Active CHEST 1 VIEW (PORTABLE) Stat Exams 03/18/25 18:25 Taken CBC W DIFF Stat Lab 03/18/25 18:45 Completed CMP Stat Lab 03/18/25 18:45 Completed CULTURE,URINE Stat Lab 03/18/25 18:25 Received D-DIMER QUANTITATIVE Stat Lab 03/18/25 18:45 Completed ETHYL ALCOHOL Stat Lab 03/18/25 18:45 Completed MAGNESIUM Stat Lab 03/18/25 18:45 Completed TROPONIN Q4H Lab 03/18/25 18:45 Completed TROPONIN Q4H Lab 03/18/25 22:30 Ordered TROPONIN Q4H Lab 03/19/25 02:30 Ordered UA W/RFX UR CULTURE Stat Lab 03/18/25 18:25 Completed Urine Triage Profile Stat Lab 03/18/25 18:25 Completed Medication Summary Generic Name Dose Route Start Last Admin Trade Name Freq PRN Reason Stop Dose Admin Sodium Chloride 1,000 mls @ 50 mls/hr 03/18/25 18:30 03/18/25 18:28 Sodium Chloride 0.9% 1000 Ml IV 04/17/25 18:29 50 mls/hr .Q20H DESHAUN Administration Ceftriaxone Sodium 1 gm in 100 mls @ 200 mls/hr 03/18/25 20:43 03/18/25 20:48 Rocephin 1 Gm / 100 Ml Nacl IV 03/18/25 21:12 200 mls/hr STAT ONE 200 mls/hr Administration Discontinued Medications Generic Name Dose Route Start Last Admin Trade Name Pedro PRN Reason Stop Dose Admin Ceftriaxone Sodium Confirm 03/18/25 20:44 Rocephin 1 Gm / 100 Ml Nacl Administered 03/18/25 20:45 Dose 1 gm in 100 mls @ ud IV .STK-MED ONE Ondansetron HCl 4 mg 03/18/25 18:26 03/18/25 18:28 Ondansetron Hcl 4 Mg/2 Ml Vial IV 03/18/25 18:27 4 mg STAT ONE Administration Ondansetron HCl Confirm 03/18/25 18:27 Ondansetron Hcl 4 Mg/2 Ml Vial Administered 03/18/25 18:28 Dose 4 mg .ROUTE .STK-MED ONE Lab/Rad Data: Laboratory Result Diagrams 03/18/25 18:45 03/18/25 18:45 Laboratory Results 03/18/25 03/18/25 03/18/25 Range/Units 18:45 18:45 18:45 WBC (3.98-10.04) x10^3/uL RBC (3.93-5.22) x10^6/uL Hgb (11.2-15.7) g/dL Hct (34.1-44.9) % MCV (79.4-94.8) fL MCH (25.6-32.2) pg MCHC (32.2-35.5) g/dL RDW (11.7-14.4) % Plt Count (182-369) x10^3/uL MPV (9.4-12.3) fL Gran % (34.0-71.1) % Immature Gran % (Auto) (0.001-0.429) % Nucleat RBC Rel Count (0.00-0.2) % Eos # (Auto) (0.04-0.36) x10^3/uL Immature Gran # (Auto) (0.001-0.031) x10^3u/L Absolute Lymphs (auto) (1.18-3.74) x10^3/uL Absolute Monos (auto) (0.24-0.86) x10^3/uL Absolute Nucleated RBC (0.00-0.012) x10^3u/L Lymphocytes % (19.3-51.7) % Monocytes % (4.7-12.5) % Eosinophils % (0.7-5.8) % Basophils % (0.1-1.2) % Absolute Granulocytes (1.56-6.13) x10^3/uL Basophils # (0.01-0.08) x10^3/uL D-Dimer 0.39 (0.0-0.50) mg/L Sodium 138 (135-145) mmol/L Potassium 4.2 (3.5-5.1) mmol/L Chloride 103 (98-107) mmol/L Carbon Dioxide 22 (22-30) mmol/L Anion Gap 16.2 H (5-15) MEQ/L BUN 33 H (7-17) mg/dL Creatinine 1.53 H (0.52-1.04) mg/dL Estimated GFR 39.0 ML/MIN Glucose 121 H (74-106) mg/dL Calcium 10.0 (8.4-10.2) mg/dL Magnesium 1.9 (1.6-2.3) mg/dL Total Bilirubin 0.20 (0.2-1.3) mg/dL AST 27 (14-36) U/L ALT 18 (0-35) U/L Alkaline Phosphatase 86 (38-126) U/L Troponin I < 0.012 (0.000-0.033) ng/mL Serum Total Protein 6.9 (6.3-8.2) g/dL Albumin 4.4 (3.5-5.0) g/dL Urine Color (Yellow) Urine Appearance (Clear) Urine pH (4.6-8.0) Ur Specific [place] (1.005-1.030) Urine Protein (Negative) Urine Glucose (UA) (Negative) mg/dL Urine Ketones (Negative) Urine Blood (Negative) Urine Nitrite (Negative) Urine Bilirubin (Negative) Urine Urobilinogen (0.2) mg/dL Ur Leukocyte Esterase (Negative) U Hyaline Cast (Auto) (0-2) /LPF Urine Microscopic RBC (0-5) /HPF Urine Microscopic WBC (0-5) /HPF Ur Epithelial Cells (None Seen) /HPF Urine Bacteria (None Seen) /HPF Urine Mucus (NEGATIVE) /HPF Urine Culture Reflexed (NO) Urine Opiates Level (NEGATIVE) Ur Methadone (NEGATIVE) Urine Barbiturates (NEGATIVE) Ur Phencyclidine (PCP) (NEGATIVE) Urine Amphetamine (NEGATIVE) U Benzodiazepine Level (NEGATIVE) Urine Cocaine (NEGATIVE) Urine Marijuana (THC) (NEGATIVE) Ethyl Alcohol < 10 (0-10) mg/dL 03/18/25 03/18/25 03/18/25 Range/Units 18:45 18:25 18:25 WBC 11.4 H (3.98-10.04) x10^3/uL RBC 4.79 (3.93-5.22) x10^6/uL Hgb 13.4 (11.2-15.7) g/dL Hct 41.9 (34.1-44.9) % MCV 87.5 (79.4-94.8) fL MCH 28.0 (25.6-32.2) pg MCHC 32.0 L (32.2-35.5) g/dL RDW 14.2 (11.7-14.4) % Plt Count 281 (182-369) x10^3/uL MPV 12.0 (9.4-12.3) fL Gran % 70.7 (34.0-71.1) % Immature Gran % (Auto) 0.5 H (0.001-0.429) % Nucleat RBC Rel Count 0.0 (0.00-0.2) % Eos # (Auto) 0.10 (0.04-0.36) x10^3/uL Immature Gran # (Auto) 0.06 H (0.001-0.031) x10^3u/L Absolute Lymphs (auto) 2.34 (1.18-3.74) x10^3/uL Absolute Monos (auto) 0.77 (0.24-0.86) x10^3/uL Absolute Nucleated RBC 0.00 (0.00-0.012) x10^3u/L Lymphocytes % 20.5 (19.3-51.7) % Monocytes % 6.7 (4.7-12.5) % Eosinophils % 0.9 (0.7-5.8) % Basophils % 0.7 (0.1-1.2) % Absolute Granulocytes 8.07 H (1.56-6.13) x10^3/uL Basophils # 0.08 (0.01-0.08) x10^3/uL D-Dimer (0.0-0.50) mg/L Sodium (135-145) mmol/L Potassium (3.5-5.1) mmol/L Chloride (98-107) mmol/L Carbon Dioxide (22-30) mmol/L Anion Gap (5-15) MEQ/L BUN (7-17) mg/dL Creatinine (0.52-1.04) mg/dL Estimated GFR ML/MIN Glucose (74-106) mg/dL Calcium (8.4-10.2) mg/dL Magnesium (1.6-2.3) mg/dL Total Bilirubin (0.2-1.3) mg/dL AST (14-36) U/L ALT (0-35) U/L Alkaline Phosphatase (38-126) U/L Troponin I (0.000-0.033) ng/mL Serum Total Protein (6.3-8.2) g/dL Albumin (3.5-5.0) g/dL Urine Color Dark Yellow A (Yellow) Urine Appearance Turbid A (Clear) Urine pH 5.0 (4.6-8.0) Ur Specific [place] 1.025 (1.005-1.030) Urine Protein 100 A (Negative) Urine Glucose (UA) Negative (Negative) mg/dL Urine Ketones Trace A (Negative) Urine Blood Negative (Negative) Urine Nitrite Positive A (Negative) Urine Bilirubin Small A (Negative) Urine Urobilinogen 1.0 A (0.2) mg/dL Ur Leukocyte Esterase Small A (Negative) U Hyaline Cast (Auto) 3-5 A (0-2) /LPF Urine Microscopic RBC 6-10 A (0-5) /HPF Urine Microscopic WBC 21-50 A (0-5) /HPF Ur Epithelial Cells Few (None Seen) /HPF Urine Bacteria Many A (None Seen) /HPF Urine Mucus Few A (NEGATIVE) /HPF Urine Culture Reflexed YES (NO) Urine Opiates Level POSITIVE A (NEGATIVE) Ur Methadone NEGATIVE (NEGATIVE) Urine Barbiturates NEGATIVE (NEGATIVE) Ur Phencyclidine (PCP) NEGATIVE (NEGATIVE) Urine Amphetamine NEGATIVE (NEGATIVE) U Benzodiazepine Level NEGATIVE (NEGATIVE) Urine Cocaine NEGATIVE (NEGATIVE) Urine Marijuana (THC) NEGATIVE (NEGATIVE) Ethyl Alcohol (0-10) mg/dL <DE PRICE,DIRK R. - Last Filed: 03/18/25 19:13> - Progress Counseled pt/family regarding: lab results, diagnosis, rad results <NATHAN ALEXANDRE - Last Filed: 03/18/25 21:15> - Progress Progress Note: 03/18/25 18:19 EKG 5 PM normal sinus rhythm 87 bpm no ischemic changes. 03/18/25 19:13 Endorse final evaluation and treatment plan to oncoming emergency physician Dr. Nathan Alexandre. (MILY HILLIARD) 59-year-old female smoker history of breast cancer hyperlipidemia hypertension COPD hep C presents to our ED for evaluation of dizziness and chest pain. Patient initially evaluated by Dr. Cartagena. Patient endorsed to Dr. Alexandre at approximately 7 PM. Workup initiated. D-dimer negative. Initial troponin negative. UA significant for urinary tract infection. I initiated IV antibiotics. Patient's kidney function is abnormal. BUN 33 creatinine 1.55. Creatinine previously 0.57. In light of patient's chest pain abnormal kidney function and significant urinary tract infection patient will be admitted for further evaluation and treatment. Plan of care discussed with patient. She agrees to admission to [facility] for further evaluation and treatment. Heart score is 4 Chest x-ray completed. Formal read pending. However there appears to be a new right middle lobe opacity of unknown significance. Patient has no findings consistent with pneumonia. No fever no tachypnea no hypoxia no coughing no complaints of shortness of breath Dr. Alexandre independently reviewed and interpreted the chest x-ray. Differential diagnosis includes DE, acute coronary syndrome, pulmonary embolus, pneumonia, Aspirin withheld due to kidney function. Patient has no active chest pain at this time, therefore no nitroglycerin administered. Portions of this note were created with voice recognition technology. There may be grammatical, spelling, punctuation or sound alike errors History obtained from patient and daughter who was at the bedside Complexity of problem addressed is moderate acute complicated. No critical care time. Complex of data reviewed and analyzed is extensive. Test ordered chest reviewed results analyzed and correlated clinically with history and physical exam. Management discussed with hospitalist who accepts admission to observation. Risk of complication and or risk of morbidity/mortality of patient management is high. Patient requires hospitalization for further evaluation and treatment. Vital stable. Time spent in patient approximately 15 minutes. Plan of care established for shared decision making. No social determinants of health present to impede follow-up. I spoke to hospitalist at 9:10 PM. accepts admission to observation 03/18/25 20:50 (NATHAN ALEXANDRE) - Departure Critical Care Time: No <MILY HILLIARD - Last Filed: 03/18/25 19:13> - Departure Departure Disposition: Observation <NATHAN ALEXANDRE - Last Filed: 03/18/25 21:15> - Departure Clinical Impression: Dizziness, Leukocytosis, Urinary tract infection, Acute renal injury, Chest pain, ACS (acute coronary syndrome) Condition: Stable Referrals: GREGORY BENAVIDEZ [employer] [Primary Care Provider, UNKNOWN] - Follow up/PCP as directed
[2025-03-18] MEDS ORDERED: Zofran 4 MG/2 ML VIAL ONE (18:27)
[2025-03-18] MEDS: Zofran 4 MG/2 ML VIAL IV ONE (18:28)
[2025-03-18 18:48] LABS: BASOPHIL % 0.7 % (0.1-1.2); Basophil (Absolute #) 0.08 x10^3/uL (0.01-0.08); Eosinophil (Absolute #) 0.10 x10^3/uL (0.04-0.36); Hematocrit 41.9 % (34.1-44.9); Hemoglobin 13.4 g/dL (11.2-15.7); IMMATURE GRAN # 0.06 x10^3u/L (0.001-0.031); IMMATURE GRAN % 0.5 % (0.001-0.429); Lymphocyte (Absolute #) 2.34 x10^3/uL (1.18-3.74); Mean Corpuscular Hemoglobin 28.0 pg (25.6-32.2); Mean Corpuscular Hgb Concent. 32.0 g/dL (32.2-35.5); Monocyte (Absolute #) 0.77 x10^3/uL (0.24-0.86); NUCLEATED RBC # 0.00 x10^3u/L (0.00-0.012); NUCLEATED RBC % 0.0 % (0.00-0.2); Platelet Count 281 x10^3/uL (182-369); Red Blood Count 4.79 x10^6/uL (3.93-5.22); White Blood Count 11.4 x10^3/uL (3.98-10.04)
[2025-03-18 19:10] LABS: Calcium 10.0 mg/dL (8.4-10.2); Carbon Dioxide 22 mmol/L (22-30); Creatinine 1 1.53 mg/dL (0.52-1.04); EST GLOMERULAR FILTRATION RATE 39.0 ML/MIN; ETHYL ALCOHOL < 10 mg/dL (0-10); Glucose 121 mg/dL (74-106); Potassium 4.2 mmol/L (3.5-5.1); SGOT/AST 27 U/L (14-36); SGPT/ALT 18 U/L (0-35); Total Protein 6.9 g/dL (6.3-8.2)
[2025-03-18 19:30] LABS: Amphetamine,Urine NEGATIVE (NEGATIVE); Barbiturate,Urine NEGATIVE (NEGATIVE); Benzodiazepine,Urine NEGATIVE (NEGATIVE); Cocaine,Urine NEGATIVE (NEGATIVE); Methadone,Urine NEGATIVE (NEGATIVE); Opiate,Urine POSITIVE (NEGATIVE); PCP,Urine NEGATIVE (NEGATIVE); THC,Urine NEGATIVE (NEGATIVE)
[2025-03-18 19:40] LABS: Glucose, Urine Negative (Negative); Protein,Urine Dip 100 (Negative); WBC 21-50 /HPF (0-5)
[2025-03-18] MEDS ORDERED: ROCEPHIN 1 GM / 100 ML NaCl 1 GM/100 ML IVPB IV ONE (20:44)
[2025-03-18] MEDS: ROCEPHIN 1 GM / 100 ML NaCl 1 GM/100 ML IVPB IV ONE (20:48)
[2025-03-18] MEDS ORDERED: Zofran 4 MG/2 ML VIAL IV PRN (22:29)
[2025-03-18] MEDS ORDERED: TYLENOL 325 MG PO PRN (22:29)
[2025-03-18] MEDS ORDERED: DUONEB 0.5-3 MG/3 ml Neb IH PRN (22:29)
--- NOTE | 2025-03-18 22:42 | PCM.HP ---
History of Present Illness - Chief Complaint Chief Complaint: Chest pain, acute coronary syndrome Date: 03/18/25 History of Present Illness: is a 59 year old female. She states that she was working at the [employer] and began to experience chest pain around 3:30 PM. She was having dizziness, lightheadedness and nausea. She felt like she was about to pass out but denies actually losing consciousness or falling. Pain was substernal, nonradiating, 6 out of 10 intensity, lasted for about 2 hours, described as "tightness", no associated fever, chills. She does have occasional shortness of breath and a chronic cough. Has had decreased oral intake for the past few days. Does endorse dysuria and urinary urgency. Currently is pain-free. In the ED, her workup was notable for leukocytosis, worsening renal function, and UTI. Chest x-ray shows increased interstitial markings/opacities and right lower lobe infiltrate suggesting possible pneumonia. Patient was given IV fluids and ceftriaxone in the ED for UTI. He was given ondansetron for nausea which helped. - Review of Systems Constitutional: Fatigue, Lethargy Eyes: No Symptoms Ears, Nose, & Throat: No Symptoms Respiratory: Cough, Short Of Breath Cardiac: Chest Pain Abdominal/Gastrointestinal: No Symptoms, Nausea, Diarrhea (has chronic diarrhea), Appetite Changes Genitourinary Symptoms: Dysuria, Urgency (Denies flank pain) Skin: No Symptoms Neurological: No Symptoms Psychological: No Symptoms Endocrine: No Symptoms Hematologic/Lymphatic: No Symptoms Immunological/Allergic: No Symptoms Medications & Allergies Home Medications: Home Medication List Pregabalin [Lyrica] 75 mg PO TID 11/01/21 [History Confirmed 03/18/25] Losartan Potassium 50 mg [Cozaar 50 MG] 50 mg PO DAILY 07/13/23 [History Confirmed 03/18/25] Esomeprazole Magnesium 40 mg PO DAILY 03/18/25 [History Confirmed 03/18/25] Fenofibrate 1 tab PO DAILY 03/18/25 [History Confirmed 03/18/25] Fezolinetant [Veozah] 1 tab PO HS 03/18/25 [History Confirmed 03/18/25] Fluoxetine HCl [Prozac] 1 cap PO HS 03/18/25 [History Confirmed 03/18/25] Levocetirizine Dihydrochloride [24Hr Allergy Relief] 5 mg PO DAILY 03/18/25 [History Confirmed 03/18/25] Mirabegron [Myrbetriq] 50 mg PO DAILY 03/18/25 [History Confirmed 03/18/25] Opium Tincture 0.6 ml PO BID 03/18/25 [History Confirmed 03/18/25] Allergies/Adverse Reactions: Allergies Allergy/AdvReac Type Severity Reaction Status Date / Time dicyclomine [From Bentyl] Allergy Verified 03/18/25 17:04 gabapentin Allergy Verified 03/18/25 17:04 - Past Medical History Past Medical History: No Neurological History: No Pertinent History ENT History: No Pertinent History Cardiac History: High Cholesterol, Hypertension Respiratory History: COPD, Other Endocrine Medical History: Other Musculoskelatal History: Fractures GI Medical History: Hernia History: No Pertinent History Pyscho-Social History: No Pertinent History Reproductive Disorders: Breast Cancer Comment: Hepatitis C -treated, patient reports bacterial infection to stomach and liver (February 2024), hx of L breast cancer (s/p partial mastectomy in 2015), hysterectomy (2018), 2 places of concern to R lung (being monitored by Dr. Pérez), R elbow fracture (childhood), , GERD, bladder incontinence, COPD, HTN, HLD, hiatal hernia - Past Surgical History Past Surgical History: Yes Neuro Surgical History: No Pertinent History Cardiac History: No Pertinent History Respiratory Surgery: No Pertinent History GI Surgical History: Appendectomy, Cholecystectomy Genitourinary Surgical Hx: No Pertinent History Musculskeletal Surgical Hx: No Pertinent History Female Surgical History: Hysterectomy, Lumpectomy Other Surgical History: r wrist Significant Family History: no pertinent family hx - Social History Smoking Status: Current every day smoker How long have you smoked: unsure Exposure to second hand smoke: Yes Alcohol: None Drug Use: none - Social Determinants of Health Will the patient participate in the screening: Yes Do you worry about a steady place to live?: No Do you have any problems with any of the following?: No known problems In the past 12 months,have you had to go without utilities?: No Have you or anyone in your house had to go without enough: No Transportation Issues: No Has anyone in your support network made you feel unsafe?: No - Physical Exam Vital Signs: Vital Signs - 24 hr Temp Pulse Resp BP BP Pulse Ox 03/18/25 22:35 78 16 97 03/18/25 21:03 70 13 111/45 94 L 03/18/25 21:00 69 12 90/46 94 L 03/18/25 20:30 75 10 L 91/50 94 L 03/18/25 20:00 71 12 99/58 95 03/18/25 19:30 80 13 105/53 95 03/18/25 19:13 95 03/18/25 19:05 80 12 139/61 99 03/18/25 19:04 83 16 139/61 97 03/18/25 18:30 108/48 03/18/25 18:06 75 12 119/48 95 03/18/25 18:00 79 14 88/37 94 L 03/18/25 17:30 86 14 130/49 94 L 03/18/25 17:00 82 16 121/59 95 03/18/25 16:43 97 F 60 18 121/59 97 General Appearance: no apparent distress Neurologic Exam: oriented x 3, cooperative, normal mood/affect Eye Exam: eyes nml inspection Ears, Nose, Throat Exam: moist mucous membranes Neck Exam: non-tender, supple Respiratory Exam: normal breath sounds, lungs clear Cardiovascular Exam: regular rate/rhythm, normal heart sounds Gastrointestinal/Abdomen Exam: soft, normal bowel sounds, tenderness, hernia Pelvic Exam: deferred Rectal Exam: deferred Back Exam: normal inspection Extremity Exam: normal inspection Skin Exam: normal color Results - Labs Lab/Micro Results: Lab Results-Last 24 Hours 03/18/25 03/18/25 03/18/25 Range/Units 18:25 18:25 18:45 WBC 11.4 H (3.98-10.04) x10^3/uL RBC 4.79 (3.93-5.22) x10^6/uL Hgb 13.4 (11.2-15.7) g/dL Hct 41.9 (34.1-44.9) % MCV 87.5 (79.4-94.8) fL MCH 28.0 (25.6-32.2) pg MCHC 32.0 L (32.2-35.5) g/dL RDW 14.2 (11.7-14.4) % Plt Count 281 (182-369) x10^3/uL MPV 12.0 (9.4-12.3) fL Gran % 70.7 (34.0-71.1) % Immature Gran % (Auto) 0.5 H (0.001-0.429) % Nucleat RBC Rel Count 0.0 (0.00-0.2) % Eos # (Auto) 0.10 (0.04-0.36) x10^3/uL Immature Gran # (Auto) 0.06 H (0.001-0.031) x10^3u/L Absolute Lymphs (auto) 2.34 (1.18-3.74) x10^3/uL Absolute Monos (auto) 0.77 (0.24-0.86) x10^3/uL Absolute Nucleated RBC 0.00 (0.00-0.012) x10^3u/L Lymphocytes % 20.5 (19.3-51.7) % Monocytes % 6.7 (4.7-12.5) % Eosinophils % 0.9 (0.7-5.8) % Basophils % 0.7 (0.1-1.2) % Absolute Granulocytes 8.07 H (1.56-6.13) x10^3/uL Basophils # 0.08 (0.01-0.08) x10^3/uL D-Dimer (0.0-0.50) mg/L Sodium (135-145) mmol/L Potassium (3.5-5.1) mmol/L Chloride (98-107) mmol/L Carbon Dioxide (22-30) mmol/L Anion Gap (5-15) MEQ/L BUN (7-17) mg/dL Creatinine (0.52-1.04) mg/dL Estimated GFR ML/MIN Glucose (74-106) mg/dL Calcium (8.4-10.2) mg/dL Magnesium (1.6-2.3) mg/dL Total Bilirubin (0.2-1.3) mg/dL AST (14-36) U/L ALT (0-35) U/L Alkaline Phosphatase (38-126) U/L Troponin I (0.000-0.033) ng/mL Serum Total Protein (6.3-8.2) g/dL Albumin (3.5-5.0) g/dL Urine Color Dark Yellow A (Yellow) Urine Appearance Turbid A (Clear) Urine pH 5.0 (4.6-8.0) Ur Specific Crescent 1.025 (1.005-1.030) Urine Protein 100 A (Negative) Urine Glucose (UA) Negative (Negative) mg/dL Urine Ketones Trace A (Negative) Urine Blood Negative (Negative) Urine Nitrite Positive A (Negative) Urine Bilirubin Small A (Negative) Urine Urobilinogen 1.0 A (0.2) mg/dL Ur Leukocyte Esterase Small A (Negative) U Hyaline Cast (Auto) 3-5 A (0-2) /LPF Urine Microscopic RBC 6-10 A (0-5) /HPF Urine Microscopic WBC 21-50 A (0-5) /HPF Ur Epithelial Cells Few (None Seen) /HPF Urine Bacteria Many A (None Seen) /HPF Urine Mucus Few A (NEGATIVE) /HPF Urine Culture Reflexed YES (NO) Urine Opiates Level POSITIVE A (NEGATIVE) Ur Methadone NEGATIVE (NEGATIVE) Urine Barbiturates NEGATIVE (NEGATIVE) Ur Phencyclidine (PCP) NEGATIVE (NEGATIVE) Urine Amphetamine NEGATIVE (NEGATIVE) U Benzodiazepine Level NEGATIVE (NEGATIVE) Urine Cocaine NEGATIVE (NEGATIVE) Urine Marijuana (THC) NEGATIVE (NEGATIVE) Ethyl Alcohol (0-10) mg/dL 03/18/25 03/18/25 03/18/25 Range/Units 18:45 18:45 18:45 WBC (3.98-10.04) x10^3/uL RBC (3.93-5.22) x10^6/uL Hgb (11.2-15.7) g/dL Hct (34.1-44.9) % MCV (79.4-94.8) fL MCH (25.6-32.2) pg MCHC (32.2-35.5) g/dL RDW (11.7-14.4) % Plt Count (182-369) x10^3/uL MPV (9.4-12.3) fL Gran % (34.0-71.1) % Immature Gran % (Auto) (0.001-0.429) % Nucleat RBC Rel Count (0.00-0.2) % Eos # (Auto) (0.04-0.36) x10^3/uL Immature Gran # (Auto) (0.001-0.031) x10^3u/L Absolute Lymphs (auto) (1.18-3.74) x10^3/uL Absolute Monos (auto) (0.24-0.86) x10^3/uL Absolute Nucleated RBC (0.00-0.012) x10^3u/L Lymphocytes % (19.3-51.7) % Monocytes % (4.7-12.5) % Eosinophils % (0.7-5.8) % Basophils % (0.1-1.2) % Absolute Granulocytes (1.56-6.13) x10^3/uL Basophils # (0.01-0.08) x10^3/uL D-Dimer 0.39 (0.0-0.50) mg/L Sodium 138 (135-145) mmol/L Potassium 4.2 (3.5-5.1) mmol/L Chloride 103 (98-107) mmol/L Carbon Dioxide 22 (22-30) mmol/L Anion Gap 16.2 H (5-15) MEQ/L BUN 33 H (7-17) mg/dL Creatinine 1.53 H (0.52-1.04) mg/dL Estimated GFR 39.0 ML/MIN Glucose 121 H (74-106) mg/dL Calcium 10.0 (8.4-10.2) mg/dL Magnesium 1.9 (1.6-2.3) mg/dL Total Bilirubin 0.20 (0.2-1.3) mg/dL AST 27 (14-36) U/L ALT 18 (0-35) U/L Alkaline Phosphatase 86 (38-126) U/L Troponin I < 0.012 (0.000-0.033) ng/mL Serum Total Protein 6.9 (6.3-8.2) g/dL Albumin 4.4 (3.5-5.0) g/dL Urine Color (Yellow) Urine Appearance (Clear) Urine pH (4.6-8.0) Ur Specific Crescent (1.005-1.030) Urine Protein (Negative) Urine Glucose (UA) (Negative) mg/dL Urine Ketones (Negative) Urine Blood (Negative) Urine Nitrite (Negative) Urine Bilirubin (Negative) Urine Urobilinogen (0.2) mg/dL Ur Leukocyte Esterase (Negative) U Hyaline Cast (Auto) (0-2) /LPF Urine Microscopic RBC (0-5) /HPF Urine Microscopic WBC (0-5) /HPF Ur Epithelial Cells (None Seen) /HPF Urine Bacteria (None Seen) /HPF Urine Mucus (NEGATIVE) /HPF Urine Culture Reflexed (NO) Urine Opiates Level (NEGATIVE) Ur Methadone (NEGATIVE) Urine Barbiturates (NEGATIVE) Ur Phencyclidine (PCP) (NEGATIVE) Urine Amphetamine (NEGATIVE) U Benzodiazepine Level (NEGATIVE) Urine Cocaine (NEGATIVE) Urine Marijuana (THC) (NEGATIVE) Ethyl Alcohol < 10 (0-10) mg/dL - Radiology Impressions Radiology Exams & Impressions: Radiology Procedures Category Date Time Status CHEST 1 VIEW (PORTABLE) Stat Exams 03/18/25 18:25 Taken ECHO W/2D AND DOPPLER [US] Routine Exams 03/18/25 22:31 Ordered - Other Procedures and Tests Respiratory Therapy 03/18/25 22:29 EKG REPEAT IN AM 03/18/25 22:35 Respiratory Therapy Assessment DAILY Assessment/Plan (1) Hiatal hernia Current Visit: Yes Status: Acute Assessment & Plan: outpatient follow up GI/general surgery Code(s): K44.9 - DIAPHRAGMATIC HERNIA WITHOUT OBSTRUCTION OR GANGRENE (2) Tobacco dependence Current Visit: Yes Status: Acute Assessment & Plan: smokes 1/4 PPD, offered nicotene patch Code(s): F17.200 - NICOTINE DEPENDENCE, UNSPECIFIED, UNCOMPLICATED (3) History of breast cancer Current Visit: Yes Status: Acute Assessment & Plan: left breast - s/p lumpectomy Code(s): Z85.3 - PERSONAL HISTORY OF MALIGNANT NEOPLASM OF BREAST (4) COPD without exacerbation Current Visit: Yes Status: Acute Assessment & Plan: continue bronchodilators Code(s): J44.9 - CHRONIC OBSTRUCTIVE PULMONARY DISEASE, UNSPECIFIED (5) Hypertension Current Visit: Yes Status: Acute Assessment & Plan: continue oral antihypertensives Code(s): I10 - ESSENTIAL (PRIMARY) HYPERTENSION (6) Community acquired bacterial pneumonia Current Visit: Yes Status: Acute Assessment & Plan: Empirically treat with ceftriaxone and azithromycin, supplemental oxygen if needed Code(s): J15.9 - UNSPECIFIED BACTERIAL PNEUMONIA (7) Urinary tract infection Current Visit: Yes Status: Acute Assessment & Plan: empirically treat with ceftriaxone, follow up urine culture Code(s): N39.0 - URINARY TRACT INFECTION, SITE NOT SPECIFIED (8) Acute renal injury Current Visit: Yes Status: Acute Assessment & Plan: check urine studies, renal US, IV fluid hydration, monitor I&Os, avoid nephrotoxic medications Code(s): N17.9 - ACUTE KIDNEY FAILURE, UNSPECIFIED (9) Chest pain Current Visit: Yes Status: Acute Assessment & Plan: monitor on telemetry and trend cardiac enzymes to rule out ACS, recommend outpatient stress test given risk factors Code(s): R07.9 - CHEST PAIN, UNSPECIFIED Telemedicine Encounter - Telemedicine Encounter Telemedicine Encounter: "The entirety of this encounter was performed via Telemedicine" This visit was performed using real-time audio and video connection between my location and thepatients locationwith the assistance of a surrogateat the patients location. Written or verbal consent was obtained from the patient/guardian to perform this visit usingsynchrWHI Solutiontelemedicine technology. Any patient questions regarding the telemedicine interaction were answered.
[2025-03-19] MEDS: OPIUM TINCTURE PO SCH (00:05)
[2025-03-19] MEDS: [UNRECOGNIZED DRUG - OTHER] PO SCH (00:05)
[2025-03-19] MEDS: NICODERM CQ 14 MG TOP SCH (00:18)
[2025-03-19 05:04] LABS: BASOPHIL % 1.1 % (0.1-1.2); Basophil (Absolute #) 0.09 x10^3/uL (0.01-0.08); Eosinophil (Absolute #) 0.18 x10^3/uL (0.04-0.36); Hematocrit 36.4 % (34.1-44.9); Hemoglobin 11.9 g/dL (11.2-15.7); IMMATURE GRAN # 0.02 x10^3u/L (0.001-0.031); IMMATURE GRAN % 0.3 % (0.001-0.429); Lymphocyte (Absolute #) 3.00 x10^3/uL (1.18-3.74); Mean Corpuscular Hemoglobin 27.9 pg (25.6-32.2); Mean Corpuscular Hgb Concent. 32.7 g/dL (32.2-35.5); Monocyte (Absolute #) 0.49 x10^3/uL (0.24-0.86); NUCLEATED RBC # 0.00 x10^3u/L (0.00-0.012); NUCLEATED RBC % 0.0 % (0.00-0.2); Platelet Count 248 x10^3/uL (182-369); Red Blood Count 4.26 x10^6/uL (3.93-5.22); White Blood Count 7.9 x10^3/uL (3.98-10.04)
[2025-03-19 05:30] LABS: Calcium 9.0 mg/dL (8.4-10.2); Carbon Dioxide 24.0 mmol/L (22-30); Creatinine 1 1.17 mg/dL (0.52-1.04); EST GLOMERULAR FILTRATION RATE 53.8 ML/MIN; Glucose 104.0 mg/dL (74-106); Potassium 4.2 mmol/L (3.5-5.1)
[2025-03-19] MEDS ORDERED: MEDICATION INTERVENTION MC SCH ×3 (07:15→07:30)
[2025-03-19 07:36] LABS: Sodium, Urine 51.0 mmol/L (30-90)
[2025-03-19 08:08] LABS: CREATININE,URINE RANDOM 133.1 MG/DL
--- NOTE | 2025-03-19 08:57 | XRAY ---
Indication: Chest pain. Comparison: August 23, 2023 Portable chest now demonstrates subtle right mid to lower lung patchy interstitial alveolar opacity, possibly pneumonia/pneumonitis in right clinical setting. Remaining heart, lungs, and bony thorax unremarkable.
[2025-03-19] MEDS: Acidophilus TABLET PO SCH (09:45)
[2025-03-19] MEDS: Protonix 40MG Tablet PO SCH (09:45)
[2025-03-19] MEDS: LYRICA 75 MG CAP PO SCH (09:45)
[2025-03-19] MEDS: MYRBETRIQ PO SCH (09:46)
[2025-03-19] MEDS: HEPARIN 5000 UNITS/0.5 ML (HIGH RISK MED) SQ SCH (09:47)
[2025-03-19] MEDS: CLARITIN 10 MG PO SCH (09:47)
[2025-03-19] MEDS ORDERED: Compazine 10 MG/2 ML IV PRN (09:50)
--- NOTE | 2025-03-19 09:55 | PCM.NOTE ---
Date and Time: 03/19/25 0943 Subjective Assessment: is a 59-year-old female with a past medical history of hyperlipidemia, COPD, hernia, left breast cancer (2016), treated hepatitis C, GERD, and daily tobacco use who presented on 03/18/25 after developing substernal chest pain while working at [employer]. The pain began around 3:30 p.m., described as a non-radiating tightness rated 6/10, lasting approximately two hours, and associated with dizziness, lightheadedness, nausea, and near-syncope without actual loss of consciousness or fall. She denied fever or chills but reported chronic cough, intermittent shortness of breath, decreased oral intake over several days, and new urinary urgency with dysuria. On arrival to the ED, she was pain-free. Initial evaluation revealed leukocytosis, acute kidney injury, and a urinary tract infection. Chest X-ray was initially interpreted by the ED provider as showing increased interstitial markings with a right lower lobe infiltrate concerning for pneumonia. She was treated with IV fluids, ceftriaxone for UTI, and ondansetron with symptomatic relief. On 03/19, the patient remains stable and is resting comfortably in bed. She denies recurrent chest pain, and serial troponins were negative. Renal function has returned to baseline, and WBC count has normalized to 7.9. Urine culture is pending, and renal ultrasound and echocardiogram are in progress. The official radiology report of [facility] portable chest X-ray demonstrates subtle right [id number] lung patchy interstitial and alveolar opacity, consistent with pneumonia or pneumonitis, with the heart, lungs, and bony thorax otherwise unremarkable. She is saturating 91% on room air. Current treatment includes ceftriaxone for UTI, scheduled DuoNebs, and initiation of steroids and azithromycin for pneumonia management. - Review of Systems Constitutional: Fatigue, No Fever, No Chills Eyes: No Symptoms Ears, Nose, & Throat: No Symptoms Respiratory: No Cough, No Short Of Breath Cardiac: No Chest Pain, No Edema, No Syncope Abdominal/Gastrointestinal: Abdominal Pain, No Nausea, No Vomiting, No Diarrhea Genitourinary Symptoms: No Dysuria Musculoskeletal: No Back Pain, No Neck Pain Skin: No Rash Neurological: No Dizziness, No Focal Weakness, No Sensory Changes Psychological: No Symptoms Endocrine: No Symptoms Hematologic/Lymphatic: No Symptoms Immunological/Allergic: No Symptoms Objective Exam General Appearance: no apparent distress, alert Neurologic Exam: alert, oriented x 3, cooperative, normal mood/affect, nml cerebellar function, sensation nml, No motor deficits Skin Exam: normal color, warm, dry Eye Exam: PERRL, EOMI, eyes nml inspection Ears, Nose, Throat Exam: normal ENT inspection, pharynx normal, moist mucous membranes Neck Exam: normal inspection, non-tender, supple, full range of motion Respiratory Exam: normal breath sounds, lungs clear, No respiratory distress Cardiovascular Exam: regular rate/rhythm, normal heart sounds Gastrointestinal/Abdomen Exam: soft, tenderness (x4 quad), No mass Extremity Exam: normal inspection, normal range of motion Back Exam: normal inspection, normal range of motion, No CVA tenderness, No vertebral tenderness Pelvic Exam: deferred Rectal Exam: deferred Objective Data Vital Signs: Vital Signs - 24 hr Temp Pulse Resp BP BP Pulse Ox 03/19/25 07:51 97.1 F 68 17 118/56 91 L 03/19/25 07:25 76 16 96 03/19/25 04:00 97.5 F 70 16 104/51 97 03/18/25 22:35 78 16 97 03/18/25 21:49 96.9 F 72 18 121/60 97 03/18/25 21:03 70 13 111/45 94 L 03/18/25 21:00 69 12 90/46 94 L 03/18/25 20:30 75 10 L 91/50 94 L 03/18/25 20:00 71 12 99/58 95 03/18/25 19:30 80 13 105/53 95 03/18/25 19:13 95 03/18/25 19:05 80 12 139/61 99 03/18/25 19:04 83 16 139/61 97 03/18/25 18:30 108/48 03/18/25 18:06 75 12 119/48 95 03/18/25 18:00 79 14 88/37 94 L 03/18/25 17:30 86 14 130/49 94 L 03/18/25 17:00 82 16 121/59 95 03/18/25 16:43 97 F 60 18 121/59 97 Pain Assessment - Last Documented Pain Intensity 0 Intake and Output: Intake & Output 03/16/25 03/17/25 03/18/25 03/19/25 11:59 11:59 11:59 11:59 Weight 66.7 kg Lab Results: Lab Results-Last 24 Hours 03/18/25 03/18/25 03/18/25 Range/Units 07:26 18:25 18:25 WBC (3.98-10.04) x10^3/uL RBC (3.93-5.22) x10^6/uL Hgb (11.2-15.7) g/dL Hct (34.1-44.9) % MCV (79.4-94.8) fL MCH (25.6-32.2) pg MCHC (32.2-35.5) g/dL RDW (11.7-14.4) % Plt Count (182-369) x10^3/uL MPV (9.4-12.3) fL Gran % (34.0-71.1) % Immature Gran % (Auto) (0.001-0.429) % Nucleat RBC Rel Count (0.00-0.2) % Eos # (Auto) (0.04-0.36) x10^3/uL Immature Gran # (Auto) (0.001-0.031) x10^3u/L Absolute Lymphs (auto) (1.18-3.74) x10^3/uL Absolute Monos (auto) (0.24-0.86) x10^3/uL Absolute Nucleated RBC (0.00-0.012) x10^3u/L Lymphocytes % (19.3-51.7) % Monocytes % (4.7-12.5) % Eosinophils % (0.7-5.8) % Basophils % (0.1-1.2) % Absolute Granulocytes (1.56-6.13) x10^3/uL Basophils # (0.01-0.08) x10^3/uL D-Dimer (0.0-0.50) mg/L Sodium (135-145) mmol/L Potassium (3.5-5.1) mmol/L Chloride (98-107) mmol/L Carbon Dioxide (22-30) mmol/L Anion Gap (5-15) MEQ/L BUN (7-17) mg/dL Creatinine (0.52-1.04) mg/dL Estimated GFR ML/MIN Glucose (74-106) mg/dL Calcium (8.4-10.2) mg/dL Magnesium (1.6-2.3) mg/dL Total Bilirubin (0.2-1.3) mg/dL AST (14-36) U/L ALT (0-35) U/L Alkaline Phosphatase (38-126) U/L Troponin I (0.000-0.033) ng/mL Serum Total Protein (6.3-8.2) g/dL Albumin (3.5-5.0) g/dL Urine Color Dark Yellow A (Yellow) Urine Appearance Turbid A (Clear) Urine pH 5.0 (4.6-8.0) Ur Specific [place] 1.025 (1.005-1.030) Urine Protein 100 A (Negative) Urine Glucose (UA) Negative (Negative) mg/dL Urine Ketones Trace A (Negative) Urine Blood Negative (Negative) Urine Nitrite Positive A (Negative) Urine Bilirubin Small A (Negative) Urine Urobilinogen 1.0 A (0.2) mg/dL Ur Leukocyte Esterase Small A (Negative) U Hyaline Cast (Auto) 3-5 A (0-2) /LPF Urine Microscopic RBC 6-10 A (0-5) /HPF Urine Microscopic WBC 21-50 A (0-5) /HPF Ur Epithelial Cells Few (None Seen) /HPF Urine Bacteria Many A (None Seen) /HPF Urine Mucus Few A (NEGATIVE) /HPF Urine Culture Reflexed YES (NO) Ur Random Creatinine 133.1 MG/DL Urine Sodium 51 (30-90) mmol/L Urine Opiates Level POSITIVE A (NEGATIVE) Ur Methadone NEGATIVE (NEGATIVE) Urine Barbiturates NEGATIVE (NEGATIVE) Ur Phencyclidine (PCP) NEGATIVE (NEGATIVE) Urine Amphetamine NEGATIVE (NEGATIVE) U Benzodiazepine Level NEGATIVE (NEGATIVE) Urine Cocaine NEGATIVE (NEGATIVE) Urine Marijuana (THC) NEGATIVE (NEGATIVE) Ethyl Alcohol (0-10) mg/dL 03/18/25 03/18/25 03/18/25 Range/Units 18:45 18:45 18:45 WBC 11.4 H (3.98-10.04) x10^3/uL RBC 4.79 (3.93-5.22) x10^6/uL Hgb 13.4 (11.2-15.7) g/dL Hct 41.9 (34.1-44.9) % MCV 87.5 (79.4-94.8) fL MCH 28.0 (25.6-32.2) pg MCHC 32.0 L (32.2-35.5) g/dL RDW 14.2 (11.7-14.4) % Plt Count 281 (182-369) x10^3/uL MPV 12.0 (9.4-12.3) fL Gran % 70.7 (34.0-71.1) % Immature Gran % (Auto) 0.5 H (0.001-0.429) % Nucleat RBC Rel Count 0.0 (0.00-0.2) % Eos # (Auto) 0.10 (0.04-0.36) x10^3/uL Immature Gran # (Auto) 0.06 H (0.001-0.031) x10^3u/L Absolute Lymphs (auto) 2.34 (1.18-3.74) x10^3/uL Absolute Monos (auto) 0.77 (0.24-0.86) x10^3/uL Absolute Nucleated RBC 0.00 (0.00-0.012) x10^3u/L Lymphocytes % 20.5 (19.3-51.7) % Monocytes % 6.7 (4.7-12.5) % Eosinophils % 0.9 (0.7-5.8) % Basophils % 0.7 (0.1-1.2) % Absolute Granulocytes 8.07 H (1.56-6.13) x10^3/uL Basophils # 0.08 (0.01-0.08) x10^3/uL D-Dimer 0.39 (0.0-0.50) mg/L Sodium 138 (135-145) mmol/L Potassium 4.2 (3.5-5.1) mmol/L Chloride 103 (98-107) mmol/L Carbon Dioxide 22 (22-30) mmol/L Anion Gap 16.2 H (5-15) MEQ/L BUN 33 H (7-17) mg/dL Creatinine 1.53 H (0.52-1.04) mg/dL Estimated GFR 39.0 ML/MIN Glucose 121 H (74-106) mg/dL Calcium 10.0 (8.4-10.2) mg/dL Magnesium 1.9 (1.6-2.3) mg/dL Total Bilirubin 0.20 (0.2-1.3) mg/dL AST 27 (14-36) U/L ALT 18 (0-35) U/L Alkaline Phosphatase 86 (38-126) U/L Troponin I (0.000-0.033) ng/mL Serum Total Protein 6.9 (6.3-8.2) g/dL Albumin 4.4 (3.5-5.0) g/dL Urine Color (Yellow) Urine Appearance (Clear) Urine pH (4.6-8.0) Ur Specific [place] (1.005-1.030) Urine Protein (Negative) Urine Glucose (UA) (Negative) mg/dL Urine Ketones (Negative) Urine Blood (Negative) Urine Nitrite (Negative) Urine Bilirubin (Negative) Urine Urobilinogen (0.2) mg/dL Ur Leukocyte Esterase (Negative) U Hyaline Cast (Auto) (0-2) /LPF Urine Microscopic RBC (0-5) /HPF Urine Microscopic WBC (0-5) /HPF Ur Epithelial Cells (None Seen) /HPF Urine Bacteria (None Seen) /HPF Urine Mucus (NEGATIVE) /HPF Urine Culture Reflexed (NO) Ur Random Creatinine MG/DL Urine Sodium (30-90) mmol/L Urine Opiates Level (NEGATIVE) Ur Methadone (NEGATIVE) Urine Barbiturates (NEGATIVE) Ur Phencyclidine (PCP) (NEGATIVE) Urine Amphetamine (NEGATIVE) U Benzodiazepine Level (NEGATIVE) Urine Cocaine (NEGATIVE) Urine Marijuana (THC) (NEGATIVE) Ethyl Alcohol < 10 (0-10) mg/dL 03/18/25 03/18/25 03/19/25 Range/Units 18:45 22:35 04:38 WBC (3.98-10.04) x10^3/uL RBC (3.93-5.22) x10^6/uL Hgb (11.2-15.7) g/dL Hct (34.1-44.9) % MCV (79.4-94.8) fL MCH (25.6-32.2) pg MCHC (32.2-35.5) g/dL RDW (11.7-14.4) % Plt Count (182-369) x10^3/uL MPV (9.4-12.3) fL Gran % (34.0-71.1) % Immature Gran % (Auto) (0.001-0.429) % Nucleat RBC Rel Count (0.00-0.2) % Eos # (Auto) (0.04-0.36) x10^3/uL Immature Gran # (Auto) (0.001-0.031) x10^3u/L Absolute Lymphs (auto) (1.18-3.74) x10^3/uL Absolute Monos (auto) (0.24-0.86) x10^3/uL Absolute Nucleated RBC (0.00-0.012) x10^3u/L Lymphocytes % (19.3-51.7) % Monocytes % (4.7-12.5) % Eosinophils % (0.7-5.8) % Basophils % (0.1-1.2) % Absolute Granulocytes (1.56-6.13) x10^3/uL Basophils # (0.01-0.08) x10^3/uL D-Dimer (0.0-0.50) mg/L Sodium (135-145) mmol/L Potassium (3.5-5.1) mmol/L Chloride (98-107) mmol/L Carbon Dioxide (22-30) mmol/L Anion Gap (5-15) MEQ/L BUN (7-17) mg/dL Creatinine (0.52-1.04) mg/dL Estimated GFR ML/MIN Glucose (74-106) mg/dL Calcium (8.4-10.2) mg/dL Magnesium (1.6-2.3) mg/dL Total Bilirubin (0.2-1.3) mg/dL AST (14-36) U/L ALT (0-35) U/L Alkaline Phosphatase (38-126) U/L Troponin I < 0.012 < 0.012 < 0.012 (0.000-0.033) ng/mL Serum Total Protein (6.3-8.2) g/dL Albumin (3.5-5.0) g/dL Urine Color (Yellow) Urine Appearance (Clear) Urine pH (4.6-8.0) Ur Specific [place] (1.005-1.030) Urine Protein (Negative) Urine Glucose (UA) (Negative) mg/dL Urine Ketones (Negative) Urine Blood (Negative) Urine Nitrite (Negative) Urine Bilirubin (Negative) Urine Urobilinogen (0.2) mg/dL Ur Leukocyte Esterase (Negative) U Hyaline Cast (Auto) (0-2) /LPF Urine Microscopic RBC (0-5) /HPF Urine Microscopic WBC (0-5) /HPF Ur Epithelial Cells (None Seen) /HPF Urine Bacteria (None Seen) /HPF Urine Mucus (NEGATIVE) /HPF Urine Culture Reflexed (NO) Ur Random Creatinine MG/DL Urine Sodium (30-90) mmol/L Urine Opiates Level (NEGATIVE) Ur Methadone (NEGATIVE) Urine Barbiturates (NEGATIVE) Ur Phencyclidine (PCP) (NEGATIVE) Urine Amphetamine (NEGATIVE) U Benzodiazepine Level (NEGATIVE) Urine Cocaine (NEGATIVE) Urine Marijuana (THC) (NEGATIVE) Ethyl Alcohol (0-10) mg/dL 03/19/25 03/19/25 Range/Units 04:38 04:38 WBC 7.9 (3.98-10.04) x10^3/uL RBC 4.26 (3.93-5.22) x10^6/uL Hgb 11.9 (11.2-15.7) g/dL Hct 36.4 (34.1-44.9) % MCV 85.4 (79.4-94.8) fL MCH 27.9 (25.6-32.2) pg MCHC 32.7 (32.2-35.5) g/dL RDW 14.7 H (11.7-14.4) % Plt Count 248 (182-369) x10^3/uL MPV 12.6 H (9.4-12.3) fL Gran % 52.0 (34.0-71.1) % Immature Gran % (Auto) 0.3 (0.001-0.429) % Nucleat RBC Rel Count 0.0 (0.00-0.2) % Eos # (Auto) 0.18 (0.04-0.36) x10^3/uL Immature Gran # (Auto) 0.02 (0.001-0.031) x10^3u/L Absolute Lymphs (auto) 3.00 (1.18-3.74) x10^3/uL Absolute Monos (auto) 0.49 (0.24-0.86) x10^3/uL Absolute Nucleated RBC 0.00 (0.00-0.012) x10^3u/L Lymphocytes % 38.1 (19.3-51.7) % Monocytes % 6.2 (4.7-12.5) % Eosinophils % 2.3 (0.7-5.8) % Basophils % 1.1 (0.1-1.2) % Absolute Granulocytes 4.10 (1.56-6.13) x10^3/uL Basophils # 0.09 H (0.01-0.08) x10^3/uL D-Dimer (0.0-0.50) mg/L Sodium 138 (135-145) mmol/L Potassium 4.2 (3.5-5.1) mmol/L Chloride 107 (98-107) mmol/L Carbon Dioxide 24 (22-30) mmol/L Anion Gap 11.6 (5-15) MEQ/L BUN 33 H (7-17) mg/dL Creatinine 1.17 H (0.52-1.04) mg/dL Estimated GFR 53.8 ML/MIN Glucose 104 (74-106) mg/dL Calcium 9.0 (8.4-10.2) mg/dL Magnesium (1.6-2.3) mg/dL Total Bilirubin (0.2-1.3) mg/dL AST (14-36) U/L ALT (0-35) U/L Alkaline Phosphatase (38-126) U/L Troponin I (0.000-0.033) ng/mL Serum Total Protein (6.3-8.2) g/dL Albumin (3.5-5.0) g/dL Urine Color (Yellow) Urine Appearance (Clear) Urine pH (4.6-8.0) Ur Specific [place] (1.005-1.030) Urine Protein (Negative) Urine Glucose (UA) (Negative) mg/dL Urine Ketones (Negative) Urine Blood (Negative) Urine Nitrite (Negative) Urine Bilirubin (Negative) Urine Urobilinogen (0.2) mg/dL Ur Leukocyte Esterase (Negative) U Hyaline Cast (Auto) (0-2) /LPF Urine Microscopic RBC (0-5) /HPF Urine Microscopic WBC (0-5) /HPF Ur Epithelial Cells (None Seen) /HPF Urine Bacteria (None Seen) /HPF Urine Mucus (NEGATIVE) /HPF Urine Culture Reflexed (NO) Ur Random Creatinine MG/DL Urine Sodium (30-90) mmol/L Urine Opiates Level (NEGATIVE) Ur Methadone (NEGATIVE) Urine Barbiturates (NEGATIVE) Ur Phencyclidine (PCP) (NEGATIVE) Urine Amphetamine (NEGATIVE) U Benzodiazepine Level (NEGATIVE) Urine Cocaine (NEGATIVE) Urine Marijuana (THC) (NEGATIVE) Ethyl Alcohol (0-10) mg/dL Radiology Exams: Radiology Procedures Category Date Time Status CHEST 1 VIEW (PORTABLE) Stat Exams 03/18/25 18:25 Completed ECHO W/2D AND DOPPLER [US] Routine Exams 03/19/25 08:00 Ordered KIDNEY [US] Routine Exams 03/19/25 08:00 Ordered Medications: Medications Generic Name Dose Route Start Last Admin Trade Name Freq PRN Reason Stop Dose Admin Acetaminophen 650 mg 03/18/25 22:29 Acetaminophen 325 Mg Tablet PO 04/17/25 22:28 Q6H PRN PRN PAIN, FEVER, HEADACHE Albuterol/Ipratropium 3 ml 03/18/25 22:29 Ipratropium/Albuterol Sulfate 3 Ml Ampul.Neb IH 04/17/25 22:28 Q6H/PRN PRN SHORTNESS OF BREATH Fluoxetine HCl 20 mg 03/19/25 22:00 Fluoxetine Hcl 20 Mg Cap PO 04/18/25 21:59 HS DESHAUN Heparin Sodium (Beef Lung) 5,000 unit 03/19/25 10:00 Heparin 5000 Units/0.5 Ml 5,000 Unit/0.5 Ml Syr SQ 04/18/25 09:59 BID DESHAUN Sodium Chloride 1,000 mls @ 100 mls/hr 03/18/25 22:30 03/19/25 00:04 Sodium Chloride 0.9% 1000 Ml IV 04/17/25 22:29 Not Given .Q10H DESHAUN Ceftriaxone Sodium 1 gm in 100 mls @ 200 mls/hr 03/19/25 22:00 Rocephin 1 Gm / 100 Ml Nacl IV 04/18/25 21:59 QPM DESHAUN Lactobacillus Acidophilus 1 tab 03/19/25 10:00 Lactobacillus Acidophilus 1 Tab Tablet PO 04/18/25 09:59 DAILY DESHAUN Loratadine 10 mg 03/19/25 10:00 Loratadine 10 Mg Tablet PO 04/18/25 09:59 DAILY DESHAUN Mirabegron 50 mg 03/19/25 10:00 Mirabegron 25 Mg Tab.Er.24h PO 04/18/25 09:59 DAILY DESHAUN Miscellaneous Information 1 each 03/19/25 07:15 Medication Intervention 1 Each Each 04/18/25 07:14 .RN TO CHECK DESHAUN Miscellaneous Information 1 each 03/19/25 07:15 Medication Intervention 1 Each Each 04/18/25 07:14 .RN TO CHECK DESHAUN Miscellaneous Information 1 each 03/19/25 07:30 Medication Intervention 1 Each Each 04/18/25 07:29 .RN TO CHECK DESHAUN Nicotine 14 mg 03/18/25 22:30 03/19/25 00:18 Nicotine 14 Mg/Patch Patch TOP 04/17/25 22:29 Not Given Q24H DESHAUN Ondansetron HCl 4 mg 03/18/25 22:29 Ondansetron Hcl 4 Mg/2 Ml Vial IV 04/17/25 22:28 Q6H PRN PRN NAUSEA/VOMITING Pantoprazole Sodium 40 mg 03/19/25 10:00 Protonix (Pantoprazole) 40 Mg Tablet PO 04/18/25 09:59 DAILY DESHAUN Pregabalin 75 mg 03/19/25 10:00 Pregabalin 75 Mg Capsule PO 04/18/25 09:59 TID DESHAUN Discontinued Medications Generic Name Dose Route Start Last Admin Trade Name Freq PRN Reason Stop Dose Admin Sodium Chloride 1,000 mls @ 50 mls/hr 03/18/25 18:30 03/18/25 18:28 Sodium Chloride 0.9% 1000 Ml IV 04/17/25 18:29 50 mls/hr .Q20H DESHAUN Administration Ceftriaxone Sodium 1 gm in 100 mls @ 200 mls/hr 03/18/25 20:43 03/18/25 21:27 Rocephin 1 Gm / 100 Ml Nacl IV 03/18/25 21:12 Infused STAT ONE Infusion Ceftriaxone Sodium Confirm 03/18/25 20:44 Rocephin 1 Gm / 100 Ml Nacl Administered 03/18/25 20:45 Dose 1 gm in 100 mls @ ud IV .STK-MED ONE Sodium Chloride Confirm 03/18/25 18:27 Sodium Chloride 0.9% 1000 Ml Administered 03/18/25 18:28 Dose 1,000 mls @ ud .ROUTE .STK-MED ONE Non-Formulary Medication 0.6 ml 03/19/25 10:00 03/19/25 00:05 Opium Tincture [Opium Tincture] PO 04/18/25 09:59 0.6 ml BID DESHAUN Administration Ondansetron HCl 4 mg 03/18/25 18:26 03/18/25 18:28 Ondansetron Hcl 4 Mg/2 Ml Vial IV 03/18/25 18:27 4 mg STAT ONE Administration Ondansetron HCl Confirm 03/18/25 18:27 Ondansetron Hcl 4 Mg/2 Ml Vial Administered 03/18/25 18:28 Dose 4 mg .ROUTE .STK-MED ONE Assessment/Plan (1) Community acquired bacterial pneumonia Current Visit: Yes Status: Acute Assessment & Plan: - Ceftriaxone, Azithromycin, Steroids, duonebs - RA 91% - CBC, CMP reviewed - CXR: 03/18/25 Portable chest now demonstrates subtle right mid to lower lung patchy interstitial alveolar opacity, possibly pneumonia/pneumonitis in right clinical setting. Remaining heart, lungs, and bony thorax unremarkable. - WBC 7.9 Code(s): J15.9 - UNSPECIFIED BACTERIAL PNEUMONIA (2) Urinary tract infection Current Visit: Yes Status: Acute Assessment & Plan: - Ceftriaxone - UA reviewed - UC pending - CBC, CMP reviewed - IVF Code(s): N39.0 - URINARY TRACT INFECTION, SITE NOT SPECIFIED (3) Acute renal injury Current Visit: Yes Status: Acute Assessment & Plan: - Creat 1.17- BL normal - Continue IVF labs improving - Renal US pending Code(s): N17.9 - ACUTE KIDNEY FAILURE, UNSPECIFIED (4) Chest pain Current Visit: Yes Status: Acute Assessment & Plan: - Trops x3 negative - CXR reviewed - TSH pending - EKG, TELE - Echo pending - CP resolved - CBC, CMP reviewed Code(s): R07.9 - CHEST PAIN, UNSPECIFIED (5) Chronic diarrhea Current Visit: Yes Status: Chronic Assessment & Plan: - Added probiotics - Denies any recent antibiotic use - Takes tincture of opium for this prescribed by GI at [facility] in [place] Code(s): K52.9 - NONINFECTIVE GASTROENTERITIS AND COLITIS, UNSPECIFIED (6) History of breast cancer Current Visit: Yes Status: Chronic Assessment & Plan: - Remote Left side - No BP or sticks in left arm- note on wall Code(s): Z85.3 - PERSONAL HISTORY OF MALIGNANT NEOPLASM OF BREAST (7) Hypertension Current Visit: Yes Status: Chronic Assessment & Plan: - BP stable - Continue oral antihypertensives Code(s): I10 - ESSENTIAL (PRIMARY) HYPERTENSION (8) Tobacco dependence Current Visit: Yes Status: Chronic Assessment & Plan: - Nicotine patch - Advised cessation- education provided Code(s): F17.200 - NICOTINE DEPENDENCE, UNSPECIFIED, UNCOMPLICATED (9) COPD without exacerbation Current Visit: Yes Status: Chronic Assessment & Plan: - RA 91% - + pneumonia- see plan Code(s): J44.9 - CHRONIC OBSTRUCTIVE PULMONARY DISEASE, UNSPECIFIED (10) Hiatal hernia Current Visit: Yes Status: Chronic Assessment & Plan: - Know concern- Can follow up outpatient GI/general surgery Code(s): K44.9 - DIAPHRAGMATIC HERNIA WITHOUT OBSTRUCTION OR GANGRENE (11) Dizziness Current Visit: Yes Status: Resolved Assessment & Plan: - UDS + opiates- she is prescribed meds - resolved today VTE: Heparin PPI: Protonix Next of KIN: Spouse Kika- [phone] D/C plan: tomorrow Code status: Full Plan of care time > 40 minutes Code(s): R42 - DIZZINESS AND GIDDINESS
[2025-03-19] MEDS ORDERED: FENOFIBRATE 40 MG PO SCH (10:00)
[2025-03-19] MEDS: ZITHROMAX IV*** 500 MG in Sodium Chloride 0.9% 250 ML 250 ML IV SCH (10:27)
--- NOTE | 2025-03-19 10:47 | XRAY ---
Indication: Acute kidney injury. Two-dimensional renal sonogram performed. Comparison: None Both kidneys normal in reniform shape with normal color perfusion. Right kidney measures 10.6 x 4.3 x 4.8 cm and left measures 10.3 x 5.2 x 4.7 cm. No focal solid/cystic renal mass or hydronephrosis. Corticomedullary differentiation preserved. Normally distended urinary bladder is grossly unremarkable. Normal right ureteral jet. Left ureteral jet not seen within the allotted exam time. Impression: Negative renal sonogram.
[2025-03-19] MEDS: solu-MEDROL 20 MG, Sterile H2O 10 ml 1 ML IV SCH (11:39)
[2025-03-19] MEDS ORDERED: FEZOLINETANT 45 MG PO SCH (22:00)
[2025-03-19] MEDS: ROCEPHIN 1 GM / 100 ML NaCl 1 GM/100 ML IVPB IV SCH (22:45)
[2025-03-19] MEDS: Prozac 20 MG PO SCH (22:45)
[2025-03-19] MEDS: PATIENT OWN MEDICATION PO SCH (22:54)
[2025-03-20 06:32] LABS: Hematocrit 34.8 % (34.1-44.9); Hemoglobin 11.2 g/dL (11.2-15.7); Mean Corpuscular Hemoglobin 28.2 pg (25.6-32.2); Mean Corpuscular Hgb Concent. 32.2 g/dL (32.2-35.5); Platelet Count 212 x10^3/uL (182-369); Red Blood Count 3.97 x10^6/uL (3.93-5.22); White Blood Count 10.6 x10^3/uL (3.98-10.04)
[2025-03-20 07:03] LABS: Calcium 9.5 mg/dL (8.4-10.2); Carbon Dioxide 21.0 mmol/L (22-30); Creatinine 1 0.66 mg/dL (0.52-1.04); EST GLOMERULAR FILTRATION RATE 101.0 ML/MIN; Glucose 161.0 mg/dL (74-106); Potassium 4.6 mmol/L (3.5-5.1); SGOT/AST 24.0 U/L (14-36); SGPT/ALT 19.0 U/L (0-35); Total Protein 6.4 g/dL (6.3-8.2)
[2025-03-20 07:06] VITALS: RESP 16
[2025-03-20 07:30] VITALS: TEMP 98
[2025-03-20 11:46] VITALS: BP 161/67; PULSE 66; O2SAT 93
--- NOTE | 2025-03-20 11:51 | PCM.DS ---
Discharge Summary Date of Admission: 03/18/25 21:47 Date of Discharge: 03/20/25 Admitting Physician: NAVEED BERMEO MD Primary Care Provider: AVRIL ROLLE Allergies Allergies dicyclomine [From Bentyl] Allergy (Verified 03/18/25 17:04) gabapentin Allergy (Verified 03/18/25 17:04) Hospital Summary - Hospital Course Hospital Course: is a 59-year-old female with a history of hyperlipidemia, COPD, hernia, left breast cancer (2016), treated hepatitis C, GERD, and daily tobacco use who was admitted on 03/18/25 after an episode of chest pain associated with dizziness, lightheadedness, nausea, and near-syncope. Her initial workup revealed leukocytosis, acute kidney injury, and a urinary tract infection, with chest X-ray concerning for pneumonia. She was treated with IV fluids, ceftriaxone, and ondansetron with improvement in symptoms. On 03/19, she remained stable without recurrent chest pain, her renal function returned to baseline, and WBC normalized. The official radiology report of chest X-ray confirmed patchy right [id number] lung opacity consistent with pneumonia, and she was started on DuoNebs, steroids, and azithromycin in addition to ceftriaxone. On 03/20, she reported feeling much better and requested discharge. Echocardiogram revealed EF 70% with severe right ventricular hypertrophy, and she will follow up with Dr. Martinez, her prior rn mds, for further outpatient evaluation and likely stress testing. Renal ultrasound was negative for acute pathology. Her WBC was 10.6, NICOLAS resolved, and urine culture grew gram-negative organisms with sensitivities pending. She will continue antibiotics for UTI and Pneumonia with outpatient monitoring of cultures. At discharge, she denied chest pain, shortness of breath, abdominal pain, nausea, vomiting, or diarrhea, and was educated on signs and symptoms of dehydration and infection. - Vitals & Intake/Output Vital Signs: Vital Signs Temperature 98 F 03/20/25 07:29 Pulse Rate 61 03/20/25 07:29 Respiratory Rate 16 03/20/25 07:29 Blood Pressure 143/65 03/20/25 07:29 O2 Sat by Pulse Oximetry 96 03/20/25 07:29 Intake & Output: Intake & Output 03/17/25 03/18/25 03/19/25 03/20/25 11:59 11:59 11:59 11:59 Intake Total 3959 Balance 3959 Weight 66.7 kg 69 kg - Lab Result Diagrams: 03/20/25 06:30 03/20/25 04:20 Lab Results-Last 24 Hrs: Lab Results-Last 24 Hours 03/20/25 03/20/25 Range/Units 04:20 06:30 WBC 10.6 H (3.98-10.04) x10^3/uL RBC 3.97 (3.93-5.22) x10^6/uL Hgb 11.2 (11.2-15.7) g/dL Hct 34.8 (34.1-44.9) % MCV 87.7 (79.4-94.8) fL MCH 28.2 (25.6-32.2) pg MCHC 32.2 (32.2-35.5) g/dL RDW 14.2 (11.7-14.4) % Plt Count 212 (182-369) x10^3/uL MPV 11.9 (9.4-12.3) fL Sodium 139 (135-145) mmol/L Potassium 4.6 (3.5-5.1) mmol/L Chloride 109 H (98-107) mmol/L Carbon Dioxide 21 L (22-30) mmol/L Anion Gap 13.8 (5-15) MEQ/L BUN 24 H (7-17) mg/dL Creatinine 0.66 (0.52-1.04) mg/dL Estimated GFR 101.0 ML/MIN Glucose 161 H (74-106) mg/dL Calcium 9.5 (8.4-10.2) mg/dL Total Bilirubin 0.10 L (0.2-1.3) mg/dL AST 24 (14-36) U/L ALT 19 (0-35) U/L Alkaline Phosphatase 103 (38-126) U/L Serum Total Protein 6.4 (6.3-8.2) g/dL Albumin 3.9 (3.5-5.0) g/dL Micro Results-Entire Visit: Microbiology 03/18/25 18:25 Urine Culture - Preliminary Urine, Void GRAM NEGATIVE ID AND SENSITIVITY PENDING - Radiology Exams Ordered Rad Exams-Entire Visit: Radiology Procedures Category Date Time Status CHEST 1 VIEW (PORTABLE) Stat Exams 03/18/25 18:25 Completed ECHO W/2D AND DOPPLER [US] Routine Exams 03/19/25 08:00 Taken KIDNEY [US] Routine Exams 03/19/25 08:00 Completed - Procedures and Test Procedures and Tests throughout Hospitalization: Therapy Orders & Screens 03/18/25 22:29 EKG REPEAT IN AM Comment: Diagnosis: Chest pain, acute coronary syndrome 03/18/25 22:35 Respiratory Therapy Assessment DAILY Comment: Diagnosis: Chest pain, acute coronary syndrome 03/18/25 22:46 Smoking Cessation Education ONCE Comment: Diagnosis: Chest pain, acute coronary syndrome Smoking Status: Current every day smoker How long have you smoked: unsure Do you dip or chew tobacco: No 03/19/25 00:03 Smoking Cessation Education ONCE Comment: Diagnosis: Chest pain, acute coronary syndrome Smoking Status: Current every day smoker How long have you smoked: unsure Do you dip or chew tobacco: No Discharge Exam General Appearance: no apparent distress, alert Neurologic Exam: alert, oriented x 3, cooperative, normal mood/affect, nml cerebellar function, sensation nml, No motor deficits Eye Exam: PERRL, EOMI, eyes nml inspection Ears, Nose, Throat Exam: normal ENT inspection, pharynx normal, moist mucous membranes Neck Exam: normal inspection, non-tender, supple, full range of motion Respiratory Exam: normal breath sounds, lungs clear, No respiratory distress Cardiovascular Exam: regular rate/rhythm, normal heart sounds Gastrointestinal/Abdomen Exam: soft, No tenderness, No mass Pelvic Exam: deferred Rectal Exam: deferred Back Exam: normal inspection, normal range of motion, No CVA tenderness, No vertebral tenderness Extremity Exam: normal inspection, normal range of motion Skin Exam: normal color, warm, dry Final Diagnosis/Problem List - Final Discharge Diagnosis/Problem (1) Community acquired bacterial pneumonia Current Visit: Yes Status: Acute Code(s): J15.9 - UNSPECIFIED BACTERIAL PNEUMONIA (2) Urinary tract infection Current Visit: Yes Status: Acute Code(s): N39.0 - URINARY TRACT INFECTION, SITE NOT SPECIFIED (3) Acute renal injury Current Visit: Yes Status: Acute Code(s): N17.9 - ACUTE KIDNEY FAILURE, UNSPECIFIED (4) Chest pain Current Visit: Yes Status: Acute Code(s): R07.9 - CHEST PAIN, UNSPECIFIED (5) Chronic diarrhea Current Visit: Yes Status: Chronic Code(s): K52.9 - NONINFECTIVE GASTROENTERITIS AND COLITIS, UNSPECIFIED (6) History of breast cancer Current Visit: Yes Status: Chronic Code(s): Z85.3 - PERSONAL HISTORY OF MALIGNANT NEOPLASM OF BREAST (7) Hypertension Current Visit: Yes Status: Chronic Code(s): I10 - ESSENTIAL (PRIMARY) HYPERTENSION (8) Tobacco dependence Current Visit: Yes Status: Chronic Code(s): F17.200 - NICOTINE DEPENDENCE, UNSPECIFIED, UNCOMPLICATED (9) COPD without exacerbation Current Visit: Yes Status: Chronic Code(s): J44.9 - CHRONIC OBSTRUCTIVE PULMONARY DISEASE, UNSPECIFIED (10) Hiatal hernia Current Visit: Yes Status: Chronic Code(s): K44.9 - DIAPHRAGMATIC HERNIA WITHOUT OBSTRUCTION OR GANGRENE (11) Dizziness Current Visit: Yes Status: Resolved Assessment & Plan: (1) Community acquired bacterial pneumonia Current Visit: Yes Status: Acute Assessment & Plan: - Ceftriaxone, Azithromycin, Steroids, duonebs - RA 91% - CBC, CMP reviewed - CXR: 03/18/25 Portable chest now demonstrates subtle right mid to lower lung patchy interstitial alveolar opacity, possibly pneumonia/pneumonitis in right clinical setting. Remaining heart, lungs, and bony thorax unremarkable. - WBC 7.9 03/20 - WBC 10.6- may be 2:2 steroids - RA 93% - Will continue antibiotics OP Code(s): J15.9 - UNSPECIFIED BACTERIAL PNEUMONIA (2) Urinary tract infection Current Visit: Yes Status: Acute Assessment & Plan: - Ceftriaxone - UA reviewed - UC pending - CBC, CMP reviewed - IVF Code(s): N39.0 - URINARY TRACT INFECTION, SITE NOT SPECIFIED (3) Acute renal injury Current Visit: Yes Status: Acute Assessment & Plan: - Creat 1.17- BL normal - Continue IVF labs improving - Renal US pending Code(s): N17.9 - ACUTE KIDNEY FAILURE, UNSPECIFIED (4) Chest pain Current Visit: Yes Status: Acute Assessment & Plan: - Trops x3 negative - CXR reviewed - TSH pending - EKG, TELE - Echo pending - CP resolved - CBC, CMP reviewed Code(s): R07.9 - CHEST PAIN, UNSPECIFIED (5) Chronic diarrhea Current Visit: Yes Status: Chronic Assessment & Plan: - Added probiotics - Denies any recent antibiotic use - Takes tincture of opium for this prescribed by GI at [facility] in [place] Code(s): K52.9 - NONINFECTIVE GASTROENTERITIS AND COLITIS, UNSPECIFIED (6) History of breast cancer Current Visit: Yes Status: Chronic Assessment & Plan: - Remote Left side - No BP or sticks in left arm- note on wall Code(s): Z85.3 - PERSONAL HISTORY OF MALIGNANT NEOPLASM OF BREAST (7) Hypertension Current Visit: Yes Status: Chronic Assessment & Plan: - BP stable - Continue oral antihypertensives Code(s): I10 - ESSENTIAL (PRIMARY) HYPERTENSION (8) Tobacco dependence Current Visit: Yes Status: Chronic Assessment & Plan: - Nicotine patch - Advised cessation- education provided Code(s): F17.200 - NICOTINE DEPENDENCE, UNSPECIFIED, UNCOMPLICATED (9) COPD without exacerbation Current Visit: Yes Status: Chronic Assessment & Plan: - RA 91% - + pneumonia- see plan Code(s): J44.9 - CHRONIC OBSTRUCTIVE PULMONARY DISEASE, UNSPECIFIED (10) Hiatal hernia Current Visit: Yes Status: Chronic Assessment & Plan: - Know concern- Can follow up outpatient GI/general surgery Code(s): K44.9 - DIAPHRAGMATIC HERNIA WITHOUT OBSTRUCTION OR GANGRENE (11) Dizziness Current Visit: Yes Status: Resolved Assessment & Plan: - UDS + opiates- she is prescribed meds - resolved today Code(s): R42 - DIZZINESS AND GIDDINESS - Discharge Discharge Date: 03/20/25 Disposition: Home, Self-Care Condition: Stable Prescriptions: Continue Pregabalin [Lyrica] 75 mg PO TID Losartan Potassium 50 mg [Cozaar 50 MG] 50 mg PO DAILY Fenofibrate 1 tab PO DAILY Opium Tincture 0.6 ml PO BID Levocetirizine Dihydrochloride [24Hr Allergy Relief] 5 mg PO DAILY Fezolinetant [Veozah] 1 tab PO HS Esomeprazole Magnesium 40 mg PO DAILY Mirabegron [Myrbetriq] 50 mg PO DAILY Fluoxetine HCl [Prozac] 1 cap PO HS Instructions: Urinary tract infections in adults, Pneumonia in adults, Quitting smoking for adults Follow up with: ARTUR SKINNER [CONSULTING PHYSICIAN, CARDIOLOGY] - 04/07/25 3:30 pm Referral Note: Office will need you to be seen in [place] [facility] first, then future appointments can be made for Dionisio Peguero. GREGORY BENAVIDEZ, ASSISTANT PROFESSOR OF ARCHAEOLOGY [Primary Care Provider, UNKNOWN] - 03/27/25 9:15 am
== END 2025-03-20 12:47 | disposition home or self-care (01) ==
LOC: ED 16:43 → MED SURG 21:47
PROVIDERS: ADMIT Hospitalist; ATTEND Hospitalist
DX: J15.9 Unspecified bacterial pneumonia (principal); N39.0 Urinary tract infection, site not specified; N17.9 Acute kidney failure, unspecified; R07.9 Chest pain, unspecified; K52.9 Noninfective gastroenteritis and colitis, unspecified; Z85.3 Personal history of malignant neoplasm of breast; I10 Essential (primary) hypertension; F17.200 Nicotine dependence, unspecified, uncomplicated; J44.9 Chronic obstructive pulmonary disease, unspecified; K44.9 Diaphragmatic hernia without obstruction or gangrene; R42 Dizziness and giddiness; E78.5 Hyperlipidemia, unspecified; Z79.899 Other long term (current) drug therapy
CPT/HCPCS: 36415; 71045; 76770; 80048; 80053; 80307; 81001; 82077; 82570; 83735; 84300; 84443; 84484; 85025; 85027; 85379; 87077; 87086; 87186; 93005; 93041; 93268; 93306; 94760; 96365; 96374; 99285; G0378; Q3014